=== PATIENT | female | born 1955 | race Caucasian/White ===

== ENCOUNTER 2019-02-17 11:04 | Observation (INO) | payer OTHER ==
[2019-02-17 11:35] LABS: Absolute Lymphocytes (CBC) 0.9 K/uL (0.7-4.9); Absolute Monocytes 0.6 K/uL (0.1-1.3); Absolute Neutrophil 6.8 K/uL (1.8-8.0); Basophils % 0.5 % (0-1.3); Hematocrit 40.9 % (36.0-45.0); Lymphocytes % 10.8 % (15.3-44.8); MPV 8.8 fL (7.6-11.3); RBC Red Blood Cell Count 4.39 M/uL (3.86-4.86)
[2019-02-17 11:53] LABS: Protime INR 0.98
--- NOTE | 2019-02-17 11:55 | RAD REPORT ---
EXAM DESCRIPTION: CT - Head C Spine Mpr Wo Con - 02/17/2019 11:38 am CLINICAL HISTORY: Syncope. Head and neck injury status post fall. Head and neck pain COMPARISON: None. TECHNIQUE: Computed axial tomography of the head and cervical spine was obtained. Sagittal and coronal reconstruction was performed. All CT scans are performed using dose optimization technique as appropriate and may include automated exposure control or mA/KV adjustment according to patient size. FINDINGS: A posterior scalp hematoma without visualization of a skull fracture. An intracranial bleed is not seen. The ventricles are normal in caliber. An extra-axial fluid collect ion is not noted.Fluid within the visualized sinuses and mastoids is not seen A cervical fracture is not visualized. Anterior fusion C6 and C7 by plate, screws and bone plug. Spondylosis involves the cervical spine Mild posterior subluxation of C5 on C6 with disc space narrowing and osteophytes. IMPRESSION: No acute intracranial abnormality is seen. A cervical fracture is not visualized. Mild posterior subluxation of C5 on C6 probably is chronic. However this should be compared to prior exams. If the patient continues to have symptoms to suggest intracranial /spinal cord/ ligamentous pathology then MRI would be recommended
[2019-02-17 12:03] LABS: ALT/SGPT 35 U/L (12-78); AST/SGOT 34 U/L (15-37); Alkaline Phosphatase 111 U/L (45-117); BUN Blood Urea Nitrogen 14 mg/dL (7-18); Bicarbonate 24 mmol/L (21-32); Bilirubin Direct 0.2 mg/dL (0-0.2); Bilirubin Total 0.7 mg/dL (0.2-1.0); Glucose Level 131 mg/dL (74-106); NT PRO-BNP 2003 pg/mL (<125); Potassium 3.7 mmol/L (3.5-5.1); Protein, Total 8.3 g/dL (6.4-8.2); Sodium Level 137 mmol/L (136-145); Troponin (Emerg Dept Use Only) < 0.02 ng/mL (0.0-0.045)
--- NOTE | 2019-02-17 12:07 | RAD REPORT ---
EXAM DESCRIPTION: Twin Single View02/17/2019 11:45 am CLINICAL HISTORY: Chest pain COMPARISON: none FINDINGS: The lungs appear clear of acute infiltrate. The heart is normal size IMPRESSION: No acute abnormalities displayed
--- NOTE | 2019-02-17 12:13 | ER ---
Nurse's Notes [facility] Name: Esther Lira Age: 63 yrs Sex: Female : 1955 Arrival Date: 02/17/2019 Time: 11:05 Bed 5 Private MD: None, None Diagnosis: Syncope and collapse;Unspecified injury of head Presentation: 02/17 11:08 Presenting complaint: Patient states: I started getting sick yesterday, between 0630 la1 and 0700 I passed out and all i remember is waking up on the floor, before passing out I remember feeling nauseous and dizzy, Pt hit head on the a rounded corner and dented the drywall with her head. Pt also pain in right elbow and left wrist. Transition of care: patient was not received from another setting of care. Onset of symptoms was February 17, 2019. Risk Assessment: Do you want to hurt yourself or someone else? Patient reports no desire to harm self or others. Initial Sepsis Screen: Does the patient meet any 2 criteria? No. Patient's initial sepsis screen is negative. Does the patient have a suspected source of infection? No. Patient's initial sepsis screen is negative. Care prior to arrival: None. 11:08 Method Of Arrival: Wheelchair la1 11:08 Acuity: CLAUDETTE 2 la1 Triage Assessment: 11:15 General: Appears in no apparent distress. comfortable, Behavior is calm, cooperative, bp appropriate for age. Historical: - Allergies: 11:12 Codeine; la1 - Home Meds: 11:12 propranolol Oral [Active]; Lisinopril Oral [Active]; pravastatin oral oral [Active]; la1 Zoloft Oral [Active]; - PMHx: 11:12 Hypertension; High Cholesterol; la1 - PSHx: 11:12 Cholecystectomy; neck sx; la1 - Immunization history:: Adult Immunizations up to date. - Social history:: Smoking status: Patient/guardian denies using tobacco. - Ebola Screening: : No symptoms or risks identified at this time. Screenin:27 Abuse screen: Denies threats or abuse. Nutritional screening: No deficits noted. aa5 Tuberculosis screening: No symptoms or risk factors identified. Fall Risk Fall in past 12 months (25 points). IV access (20 points). Total Dick Fall Scale indicates High Risk Score (45 or more points). Fall prevention measures have been instituted. Side Rails Up X 2. Assessment: 11:20 General: Appears comfortable, Behavior is calm, cooperative. Pain: Complains of pain in aa5 occipital area Pain does not radiate. Pain currently is 5 out of 10 on a pain scale. Quality of pain is described as aching, tender, Pain began post-fall Is continuous. Neuro: Level of Consciousness is awake, alert, obeys commands, Oriented to person, place, time, situation, Student Accounts Manager are equal bilaterally Moves all extremities. Speech is normal, Facial symmetry appears normal, Pupils are PERRLA, Reports dizziness. Cardiovascular: Heart tones S1 S2 present Rhythm is regular. Respiratory: Airway is patent Respiratory effort is even, unlabored, Respiratory pattern is regular, symmetrical, Breath sounds are clear bilaterally. GI: Abdomen is round non-distended, Bowel sounds present X 4 quads. Abd is soft and non tender X 4 quads. Patient currently denies nausea, vomiting. : No signs and/or symptoms were reported regarding the genitourinary system. EENT: No signs and/or symptoms were reported regarding the EENT system. Derm: Skin is pink, warm \\T\\ dry. Hematoma noted to occipital area. Musculoskeletal: Range of motion: intact in all extremities. 12:00 Reassessment: Patient is alert, oriented x 3, equal unlabored respirations, skin aa5 warm/dry/pink. Pt notified of need for urine specimen, pt states "I can't go right now because I am dizzy" . 13:00 Reassessment: ADMIT IN PROCESS, VS STABLE ON MONITOR. bp Vital Signs: 11:12 BP 147 / 100; Pulse 82; Resp 14; Temp 98.0; Pulse Ox 98% on R/A; Weight 90.72 kg; la1 11:12 Height 5 ft. 10 in. (177.80 cm); Pain 6/10; la1 11:28 BP 159 / 92; Pulse 64; Resp 16 S; Pulse Ox 98% on R/A; aa5 13:00 BP 146 / 98; Pulse 70; Resp 21; Pulse Ox 95% ; bp ED Course: 11:05 Patient arrived in ED. mr 11:05 None, None is Private Physician. mr 11:11 Triage completed. la1 11:13 Hanna Das FNP-C is PHCP. snw 11:13 Nickolas Briscoe MD is Attending Physician. snw 11:13 Arm band placed on right wrist. la1 11:18 Janet Espinoza, RN is Primary Nurse. aa5 11:20 Patient has correct armband on for positive identification. Placed in gown. Bed in low aa5 position. Call light in reach. Side rails up X2. 11:20 customer service sales associate on. Pulse ox on. NIBP on. aa5 11:27 Inserted saline lock: 22 gauge in right antecubital area, using aseptic technique. bp Blood collected. 11:[address] mw3 11:37 CT completed. Patient tolerated procedure well. mw3 11:38 Patient moved to radiology. mw3 11:38 CT Head C Spine In Process Unspecified. EDMS 11:39 No provider procedures requiring assistance completed. aa5 11:44 X-ray completed. Patient tolerated procedure well. kp1 11:45 XRAY Chest (1 view) In Process Unspecified. EDMS 12:11 Katie Pruitt MD is Hospitalizing Provider. snw 12:45 Urine collected: clean catch specimen, sonam colored. kj1 13:48 Patient admitted, IV remains in place. bp Administered Medications: No medications were administered Outcome: 12:12 Decision to Hospitalize by Provider. snw 13:47 Admitted to Tele accompanied by tech, family with patient, via wheelchair, room 419, bp with chart, Report called to BARRERA APARICIO 13:47 Condition: stable 13:47 Instructed on the need for admit. 14:16 Patient left the ED. bp Signatures: Dispatcher [employer] EDMS Hanna Das FNP-C KILNMAN-Csnw Mohini BustillosJanet, RN RN aa5 Ryan Edmondson RN RN la1 Annika Santos kp1 Pito Hernandez RN RN Delmi Beal mw3 Jennifer Hdz kj1 Corrections: (The following items were deleted from the chart) 11:38 11:[address] mw3 mw3
--- NOTE | 2019-02-17 12:13 | EDPHYS ---
Physician Documentation [facility] Name: Esther Lira Age: 63 yrs Sex: Female : 1955 Arrival Date: 02/17/2019 Time: 11:05 Bed 5 Private MD: None, None ED Physician Nickolas Briscoe HPI: 02/17 11:30 This 63 yrs old Female presents to ER via Wheelchair with complaints of Syncope. snw 11:30 The patient has experienced syncope, collapsed. Onset: The symptoms/episode snw began/occurred suddenly, today, x2. Duration: The patient has had multiple episodes, that last an unknown period of time. Context: the episode(s) was witnessed, by no one, occurred at home, occurred while the patient was walking, Just prior to the episode the patient experienced dizziness, nausea. 11:30 Associated injury: Head/face: left occipital area, contusion, swelling. Associated snw signs and symptoms: Pertinent positives: dizziness, nausea, fatigue. Current symptoms: malaise. The patient has not experienced similar symptoms in the past. The patient has been recently seen by a physician: the patient's primary care provider, with different complaint(s), started on Lisinopril. pt with large amt of emotional/physical stress second to pt's family illnesses. Historical: - Allergies: 11:12 Codeine; la1 - Home Meds: 11:12 propranolol Oral [Active]; Lisinopril Oral [Active]; pravastatin oral oral [Active]; la1 Zoloft Oral [Active]; - PMHx: 11:12 Hypertension; High Cholesterol; la1 - PSHx: 11:12 Cholecystectomy; neck sx; la1 - Immunization history:: Adult Immunizations up to date. - Social history:: Smoking status: Patient/guardian denies using tobacco. - Ebola Screening: : No symptoms or risks identified at this time. ROS: 11:27 Constitutional: Negative for fever, chills, and weight loss, Eyes: Negative for injury, snw pain, redness, and discharge, ENT: Negative for injury, pain, and discharge, Neck: Negative for injury, pain, and swelling, Cardiovascular: Negative for chest pain, palpitations, and edema, Respiratory: Negative for shortness of breath, cough, wheezing, and pleuritic chest pain, Back: Negative for injury and pain, : Negative for injury, bleeding, discharge, and swelling, MS/Extremity: Negative for injury and deformity, Skin: Negative for injury, rash, and discoloration. 11:27 Abdomen/GI: Positive for nausea. 11:27 Neuro: Positive for syncope, x 2 this am, preceded by dizziness and nausea. Exam: 11:26 Constitutional: This is a well developed, well nourished patient who is awake, alert, snw and in no acute distress. Eyes: Pupils equal round and reactive to light, extra-ocular motions intact. Lids and lashes normal. Conjunctiva and sclera are non-icteric and not injected. Cornea within normal limits. Periorbital areas with no swelling, redness, or edema. ENT: Nares patent. No nasal discharge, no septal abnormalities noted. Tympanic membranes are normal and external auditory canals are clear. Oropharynx with no redness, swelling, or masses, exudates, or evidence of obstruction, uvula midline. Mucous membranes moist. Neck: Trachea midline, no thyromegaly or masses palpated, and no cervical lymphadenopathy. Supple, full range of motion without nuchal rigidity, or vertebral point tenderness. No Meningismus. Chest/axilla: Normal chest wall appearance and motion. Nontender with no deformity. No lesions are appreciated. Cardiovascular: Regular rate and rhythm with a normal S1 and S2. No gallops, murmurs, or rubs. Normal PMI, no JVD. No pulse deficits. Respiratory: Lungs have equal breath sounds bilaterally, clear to auscultation and percussion. No rales, rhonchi or wheezes noted. No increased work of breathing, no retractions or nasal flaring. Abdomen/GI: Soft, non-tender, with normal bowel sounds. No distension or tympany. No guarding or rebound. No evidence of tenderness throughout. Back: No spinal tenderness. No costovertebral tenderness. Full range of motion. Skin: Warm, dry with normal turgor. Normal color with no rashes, no lesions, and no evidence of cellulitis. MS/ Extremity: Pulses equal, no cyanosis. Neurovascular intact. Full, normal range of motion. Neuro: Awake and alert, GCS 15, oriented to person, place, time, and situation. Cranial nerves II-XII grossly intact. Motor strength 5/5 in all extremities. Sensory grossly intact. Cerebellar exam normal. Normal gait. 11:26 Head/Face: Normocephalic, atraumatic. 11:26 Head/face: Noted is contusion, that is deep, of the left occipital area. 11:30 ECG was reviewed by the Attending Physician. snw Vital Signs: 11:12 BP 147 / 100; Pulse 82; Resp 14; Temp 98.0; Pulse Ox 98% on R/A; Weight 90.72 kg; la1 11:12 Height 5 ft. 10 in. (177.80 cm); Pain 6/10; la1 11:28 BP 159 / 92; Pulse 64; Resp 16 S; Pulse Ox 98% on R/A; aa5 13:00 BP 146 / 98; Pulse 70; Resp 21; Pulse Ox 95% ; bp MDM: 11:20 Patient medically screened. snw 12:12 ECG was reviewed by the Attending Physician. Data reviewed: vital signs, nurses notes. snw Data interpreted: Pulse oximetry: on room air is 98 %. Interpretation: normal. Counseling: I had a detailed discussion with the patient and/or guardian regarding: the historical points, exam findings, and any diagnostic results supporting the discharge/admit diagnosis, the presence of at least one elevated blood pressure reading (>120/80) during this emergency department visit, lab results, radiology results, the need for further work-up and treatment in the hospital. Physician consultation: Katie Pruitt MD was called at 12:13, was contacted at 12:13, regarding admission, to the telemetry unit. 02/17 11:16 Order name: Basic Metabolic Panel; Complete Time: 12:08 snw 02/17 11:16 Order name: CBC with Diff; Complete Time: 11:51 snw 02/17 11:16 Order name: LFT's; Complete Time: 12:08 snw 02/17 11:16 Order name: Magnesium; Complete Time: 12:08 snw 02/17 11:16 Order name: NT PRO-BNP; Complete Time: 12:08 snw 02/17 11:16 Order name: PT-INR; Complete Time: 12:08 snw 02/17 11:16 Order name: Troponin (emerg Dept Use Only); Complete Time: 12:08 snw 02/17 11:16 Order name: XRAY Chest (1 view); Complete Time: 12:08 snw 02/17 11:16 Order name: EKG; Complete Time: 11:17 snw 02/17 11:16 Order name: CT Head C Spine; Complete Time: 12:08 snw 02/17 11:52 Order name: Urine Microscopic Only; Complete Time: 13:41 snw 02/17 12:31 Order name: Urine Dipstick--Ancillary (enter results) eb 02/17 13:00 Order name: Carotid Artery Bilateral EDMS 02/17 13:00 Order name: ERT ORTHOSTATIC V/S EDMS 02/17 11:16 Order name: Cardiac monitoring; Complete Time: 11:34 snw 02/17 11:16 Order name: EKG - Nurse/Tech; Complete Time: 11:34 snw 02/17 11:16 Order name: IV Saline Lock; Complete Time: 11:34 snw 02/17 11:16 Order name: Labs collected and sent; Complete Time: 11:34 snw 02/17 11:16 Order name: O2 Per Protocol; Complete Time: 11:34 snw 02/17 11:16 Order name: O2 Sat Monitoring; Complete Time: 11:35 snw 02/17 11:52 Order name: Urine Dipstick-Ancillary (obtain specimen); Complete Time: 12:56 snw 02/17 12:18 Order name: Diet Heart Healthy; Complete Time: 12:19 ss EC:30 Rate is 62 beats/min. Rhythm is regular. QRS [place] is Normal. SC interval is prolonged snw at 220 msec. Clinical impression: 1st degree heart block. Administered Medications: No medications were administered Disposition: 02/17/19 12:12 Hospitalization ordered by Katie Pruitt for Observation. Preliminary diagnosis are Syncope and collapse, Unspecified injury of head. - Bed requested for Telemetry/MedSurg (observation). - Status is Observation. bp - Condition is Stable. - Problem is new. - Symptoms are unchanged. UTI on Admission? No Addendum: 02/19/2019 08:02 Co-signature as Attending Physician, Nickolas Briscoe MD Available for consultation at p s1 all times. . Signatures: Dispatcher [employer] EDEkta Acosta, RN RN Hanna Zhang, ELVER-C AUDIO VISUAL EQUIPMENT RENTAL CLERK-Csnw Ryan Edmondson, RN RN la1 Pito Hernandez, RN RN bp Nickolas Briscoe MD MD ps1 Corrections: (The following items were deleted from the chart) 02/17 13:13 12:12 Hospitalization Ordered by Katie Pruitt MD for Observation. Preliminary dw diagnosis is Syncope and collapse; Unspecified injury of head. Bed requested for Telemetry/MedSurg (observation). Status is Observation. Condition is Stable. Problem is new. Symptoms are unchanged. UTI on Admission? No. snw 14:16 13:13 02/17/2019 12:12 Hospitalization Ordered by Katie Pruitt MD for Observation. bp Preliminary diagnosis is Syncope and collapse; Unspecified injury of head. Bed requested for Telemetry/MedSurg (observation). Status is Observation. Condition is Stable. Problem is new. Symptoms are unchanged. UTI on Admission? No. dw
[2019-02-17 13:40] LABS: Urine Amorphous Sediment 2+ /HPF (NONE SEEN); Urine Bacteria 20-50 /HPF (<20); Urine Culture Reflex Order REFLEXED; Urine RBC 20-50 /HPF (NONE SEEN)
--- NOTE | 2019-02-17 14:24 | P.HP ---
Certification for Inpatient Patient admitted to: Observation With expected LOS: <2 Midnights Patient will require the following post-hospital care: None Practitioner: I am a practitioner with admitting privileges, knowledge of patient current condition, hospital course, and medical plan of care. Services: Services provided to patient in accordance with Admission requirements found in Title 42 Section 412.3 of the Code of Federal Regulations Patient History Date of Service: 02/17/19 Reason for admission: Syncopal episode History of Present Illness: 63-year-old female with significant past medical history of hypertension, hyperlipidemia who presented to the ED complaining of having a syncopal episode at the house. Pt states her has been sick with URI. She since yesterday also started having cough and congestion and this Morning while she was trying to get out of bed to go to the bathroom, she was coughing and passed out. Patient stated that she has never had this episode before and was recently started on lisinopril for her blood pressure. Patient has no other complaints to offer at this time. Denies having any fever chills nausea vomiting chest pain or shortness of breath at this time as well. Allergies codeine Allergy (Verified 02/17/19 14:32) Itching Home medications list reviewed: Yes - Past Medical/Surgical History Has patient received pneumonia vaccine in the past: Yes Diabetic: No -: Hypertension -: Hyperlipidemia Past Surgical History: Reviewed- Non-Contributory - Family History Family History: Reviewed- Non-Contributory - Social History Smoking Status: Never smoker Counseled patient to stop smoking for: less than 10 minutes Smoking therapy provided: Yes Patient receptive to therapy: Yes Alcohol use: No CD- Drugs: No Caffeine use: No Place of Residence: Home Review of Systems 10-point ROS is otherwise unremarkable Physical Examination - Physical Exam General: Alert, In no apparent distress HEENT: Atraumatic, PERRLA, Mucous membr. moist/pink, EOMI, Sclerae nonicteric Neck: Supple, 2+ carotid pulse no bruit, No LAD, Without JVD or thyroid abnormality Respiratory: Clear to auscultation bilaterally, Normal air movement Cardiovascular: Regular rate/rhythm, Normal S1 S2 Gastrointestinal: Normal bowel sounds, No tenderness Musculoskeletal: No tenderness Integumentary: No rashes Neurological: Normal gait, Normal speech, Normal strength at 5/5 x4 extr, Normal tone, Normal affect Lymphatics: No axilla or inguinal lymphadenopathy - Studies Laboratory Data (last 24 hrs) 02/17/19 11:25: PT 11.6, INR 0.98 02/17/19 11:25: WBC 8.3, Hgb 14.0, Hct 40.9, Plt Count 245 02/17/19 11:25: Sodium 137, Potassium 3.7, BUN 14, Creatinine 0.91, Glucose 131 H, Magnesium 2.0, Total Bilirubin 0.7, AST 34, ALT 35, Alkaline Phosphatase 111 Assessment and Plan - Problems (Diagnosis) (1) Syncopal episodes Current Visit: Yes Status: Acute Plan: Syncopal episode most likely secondary to vasovagal -head CT in the ER negative for any acute abnormality -will get MRI, carotid Doppler, echocardiogram done at this time -EKG in the ER consistent with first-degree block. Will get cardiology consultation at this time -will have patient was physical therapy and occupational therapy -will get orthostatics vitals as well Qualifiers: Syncope type: vasovagal syncope Qualified Code(s): R55 - Syncope and collapse (2) Hypertension Current Visit: Yes Status: Chronic Plan: Will restart home medication with caution after checking blood pressure here in the hospital Qualifiers: Hypertension type: essential hypertension Qualified Code(s): I10 - Essential (primary) hypertension (3) Hyperlipidemia Current Visit: Yes Status: Chronic Plan: Will restart home medication Qualifiers: Hyperlipidemia type: mixed hyperlipidemia Qualified Code(s): E78.2 - Mixed hyperlipidemia - Plan Admit patient to telemetry floor for syncopal episode and further workup for it. Discharge Plan: Home Plan to discharge in: Greater than 2 days - Advance Directives Does patient have a Living Will: No Does patient have a Durable POA for Healthcare: No - Code Status/Comfort Care Code Status Assessed: Yes Critical Care: No
[2019-02-17 14:50] LABS: Urine Blood 3+ (NEG); Urine Glucose NEGATIVE (NEG); Urine Protein 1+ (NEG); Urine Specific Gravity 1.015 (1.005-1.030); Urine pH 5.5 (5.0-7.0)
[2019-02-17] MEDS: ACETAMINOPHEN 500 MG TAB PO PRN (17:28)
--- NOTE | 2019-02-17 17:57 | RAD REPORT ---
EXAM DESCRIPTION: USCarotid Artery Bilateral02/17/2019 5:46 pm CLINICAL HISTORY: Syncope COMPARISON: None FINDINGS: The velocity of the right internal carotid artery equals 52 cm/sec. The right ICA/CCA rati o .8 The velocity of the left internal carotid artery equals 68 cm/sec. The left ICA/CCA ratio 1 Mild plaque is present within the carotid arteries. The vertebral arteries demonstrate antegrade flow IMPRESSION: Mild plaque within the carotid arteries without evidence of a hemodynamically significan t stenosis NASCET criteria used. Mild 0-49% stenosis Moderate 50-69% stenosis Severe 70-99% stenosis
[2019-02-17] MEDS: ATORVASTATIN 10 MG TAB PO SCH (20:39)
[2019-02-17] MEDS: PROPRANOLOL HCL 80 MG SA CAP PO SCH (20:39)
[2019-02-17] MEDS: SERTRALINE HCL 50 MG TAB PO SCH (20:40)
[2019-02-18 05:58] LABS: Absolute Lymphocytes (CBC) 1.2 K/uL (0.7-4.9); Absolute Monocytes 0.7 K/uL (0.1-1.3); Absolute Neutrophil 3.8 K/uL (1.8-8.0); Basophils % 0.3 % (0-1.3); Hematocrit 38.4 % (36.0-45.0); Lymphocytes % 21.4 % (15.3-44.8); MPV 9.1 fL (7.6-11.3); Monocytes % 11.6 % (3.3-12.3); RBC Red Blood Cell Count 3.94 M/uL (3.86-4.86)
[2019-02-18 06:22] LABS: Albumin 3.9 g/dL (3.4-5.0); Bilirubin Total 0.6 mg/dL (0.2-1.0); Magnesium 2.1 mg/dL (1.8-2.4); Phosphorus 2.4 mg/dL (2.5-4.9); Potassium 3.7 mmol/L (3.5-5.1)
[2019-02-18] MEDS: ACETAMINOPHEN 500 MG TAB PO PRN ×3 (07:10→20:39)
[2019-02-18] MEDS: PROPRANOLOL HCL 80 MG SA CAP PO SCH ×2 (08:10→20:41)
[2019-02-18] MEDS: ASPIRIN EC 81 MG TAB PO SCH (08:10)
[2019-02-18] MEDS ORDERED: POTASS/SODIUM PHOSPHATE 1 PKT POWD.PACK PO ONE (09:00)
[2019-02-18] MEDS ORDERED: POTASSIUM 25 MEQ EFFERV TAB PO ONE (09:00)
[2019-02-18] MEDS ORDERED: SERTRALINE HCL 50 MG TAB PO SCH (09:00)
[2019-02-18] MEDS ORDERED: ACETAMINOPHEN 325 MG TABLET PO PRN (10:51)
--- NOTE | 2019-02-18 11:12 | P.PN ---
Subjective Date of Service: 02/18/19 Chief Complaint: Syncopal episode Subjective: Tolerating diet, Ambulating, Improving, Working w/ PT, Doing well, Other (Complains of having headache and nasal congestion at this time.) Review of Systems 10-point ROS is otherwise unremarkable Physical Examination - Vital Signs Temperature: 99.3 F Blood Pressure: 160/101 Pulse: 84 Respirations: 16 Pulse Ox (%): 98 - Physical Exam General: Alert, In no apparent distress HEENT: Atraumatic, PERRLA, EOMI Neck: Supple, JVD not distended Respiratory: Clear to auscultation bilaterally, Normal air movement Cardiovascular: Regular rate/rhythm, Normal S1 S2 Gastrointestinal: Normal bowel sounds, No tenderness Musculoskeletal: No tenderness Integumentary: No rashes Neurological: Normal speech, Normal tone, Normal affect Lymphatics: No axilla or inguinal lymphadenopathy - Studies Laboratory Data (last 24 hrs) 02/17/19 11:25: PT 11.6, INR 0.98 02/17/19 11:25: WBC 8.3, Hgb 14.0, Hct 40.9, Plt Count 245 02/17/19 11:25: Sodium 137, Potassium 3.7, BUN 14, Creatinine 0.91, Glucose 131 H, Magnesium 2.0, Total Bilirubin 0.7, AST 34, ALT 35, Alkaline Phosphatase 111 Medications List Reviewed: Yes Assessment And Plan - Current Problems (Diagnosis) (1) Syncopal episodes Current Visit: Yes Status: Acute Plan: Syncopal episode most likely secondary to vasovagal -head CT in the ER negative for any acute abnormality -brain MRI in an echocardiogram pending at this time -EKG in the ER consistent with first-degree block. -cardiology consulted appreciated recommendations at this time -patient to work with physical therapy and occupational therapy today -stable orthostatic vital Qualifiers: Syncope type: vasovagal syncope Qualified Code(s): R55 - Syncope and collapse (2) Hypertension Current Visit: Yes Status: Chronic Plan: Currently taking propanolol. Restarted lisinopril today. If needed will increase lisinopril to adjust for blood pressure Qualifiers: Hypertension type: essential hypertension Qualified Code(s): I10 - Essential (primary) hypertension (3) Hyperlipidemia Current Visit: Yes Status: Chronic Plan: On home medication now Qualifiers: Hyperlipidemia type: mixed hyperlipidemia Qualified Code(s): E78.2 - Mixed hyperlipidemia - Plan Pending clinical improvement at this time. Will await brain MRI and echocardiogram tomorrow morning. If both of which were negative patient can safely be discharged home and have follow up with cardiology outpatient. Patient will also worked with physical and occupational therapy here in the hospital. Discharge Plan: Home Plan to discharge in: 48 Hours - Code Status/Comfort Care Code Status Assessed: Yes Critical Care: No
[2019-02-18] MEDS ORDERED: TEMAZEPAM 15 MG CAP PO PRN (20:29)
[2019-02-18] MEDS: SERTRALINE HCL 50 MG TAB PO SCH (20:40)
[2019-02-18] MEDS: FLUTICASONE 50MCG NASAL SPRAY NAS SCH (20:41)
[2019-02-18] MEDS: ATORVASTATIN 10 MG TAB PO SCH (20:41)
--- NOTE | 2019-02-19 00:21 | CON ---
Date of Consultation: 02/18/[address] Pruitt's service on 02/17/2019 with syncope. I saw the patient on 02/18/2019. History Of Present Illness: Ms. Lira is a 63-year-old woman who has a history of hypertension, dyslipidemia, who came in with a syncopal episode while she was standing. It was not witnessed. The re were no postictal or preictal symptoms. No incontinence. Denied any chest pain, nausea, vomiting , diaphoresis, PND, orthopnea, pedal edema, or palpitation prior to her episode. She feels that her symptoms are secondary to blood pressure being elevated. Allergies: SHE IS ALLERGIC TO CODEINE. Review of Systems: Negative. Social History: Negative. Family History: Negative. Medications: At home include aspirin, lisinopril, Pravachol, propranolol, and sertraline. Physical Examination: Vital Signs: Her blood pressure is 160/100. HEENT: Negative. Neck: Supple without any bruit, lymphadenopathy, JVD, or thyromegaly. Chest: Clear to auscultation and percussion. Cardiac: Revealed a regular rhythm and rate with an S4 gallop. Abdomen: Benign. Extremities: Revealed no clubbing, cyanosis, or edema. Diagnostic Data: Chest x-ray was negative. She had a CT of her head and cervical spine which were n egative. Her carotid Doppler was negative. Her BNP was 2003. Impression And Plan: 1.Syncope secondary to uncontrolled hypertension, certainly could be a vagal reaction because of her blood pressure being elevated. 2.Dyslipidemia. I think Ms. Lira can certainly go home on a higher dose of lisinopril. Continue the propranolol . I think an echocardiogram and outpatient event monitors are reasonable. TYRA/ISABELLAL Voice ID: [id number] Report ID: [id number]
--- NOTE | 2019-02-19 05:57 | EKG ---
Test Date: 2019-02-17 Test Time: 11:28:00 [employer] Specialist: MEETA MEASUREMENT RESULTS: Intervals: Rate: 62 MI: 220 QRSD: 76 QT: 436 QTc: 442 [place]: P: 46 MI: 220 QRS: -14 T: 49 INTERPRETIVE STATEMENTS: Sinus rhythm with 1st degree AV block Otherwise normal ECG No previous ECG available for comparison Electronically Signed On 02-19-19 05:56:16 CDT by Jonas Garcia
[2019-02-19 06:25] LABS: Absolute Lymphocytes (CBC) 1.9 K/uL (0.7-4.9); Absolute Neutrophil 4.9 K/uL (1.8-8.0); Basophils % 0.4 % (0-1.3); Hematocrit 41.9 % (36.0-45.0); Lymphocytes % 23.8 % (15.3-44.8); MPV 9.1 fL (7.6-11.3); Monocytes % 12.5 % (3.3-12.3); RBC Red Blood Cell Count 4.37 M/uL (3.86-4.86)
[2019-02-19 06:47] LABS: Albumin 4.1 g/dL (3.4-5.0); Bilirubin Total 0.7 mg/dL (0.2-1.0); Magnesium 2.2 mg/dL (1.8-2.4); Phosphorus 2.7 mg/dL (2.5-4.9); Potassium 3.6 mmol/L (3.5-5.1); Protein, Total 8.7 g/dL (6.4-8.2)
[2019-02-19] MEDS: ACETAMINOPHEN 500 MG TAB PO PRN (07:14)
--- NOTE | 2019-02-19 08:41 | RAD REPORT ---
EXAM DESCRIPTION: MRI - Brain Wo Cont - 02/19/2019 8:12 am CLINICAL HISTORY: syncope Headache, drowsiness, CVA COMPARISON: Head C Spine Mpr Wo Con dated 02/17/2019; Carotid Artery Bilateral dated 02/17/2019 TECHNIQUE: Multi-sequence, multiplanar MR imaging of the brain was performed without contrast. FINDINGS: No intracranial hemorrhage, hydrocephalus or extra-axial fluid collections. No edema or sh ift of midline structures. No findings to suspect brain mass. DWI is negative for acute CVA. Midline structures are normally formed. Mild mucosal thickening is present in both maxillary antra and sphenoid sinuses. Mild fluid is seen i n the right mastoid air cell. IMPRESSION: No acute or concerning intracranial abnormalities.
[2019-02-19] MEDS: FLUTICASONE 50MCG NASAL SPRAY NAS SCH (08:46)
[2019-02-19] MEDS: ASPIRIN EC 81 MG TAB PO SCH (08:46)
[2019-02-19] MEDS: PROPRANOLOL HCL 80 MG SA CAP PO SCH (08:49)
[2019-02-19] MEDS ORDERED: LISINOPRIL 20 MG TAB PO SCH ×2 (09:00)
[2019-02-19] MEDS ORDERED: POTASSIUM CL SA 10 MEQ TAB PO ONE (09:00)
--- NOTE | 2019-02-19 13:43 | P.DS ---
Admission Date: 02/17/19 Discharge Date: 02/19/19 Primary Care Provider: Dr. Cordova([facility]) Disposition: ROUTINE DISCHARGE Discharge Condition: GOOD Reason for Admission: Syncopal episode Consultations: Cardiology-Dr. Conley Procedures: MRI Brain: COMPARISON: Head C Spine Mpr Wo Con dated 02/17/2019; Carotid Artery Bilateral dated 02/17/2019 TECHNIQUE: Multi-sequence, multiplanar MR imaging of the brain was performed without contrast. FINDINGS: No intracranial hemorrhage, hydrocephalus or extra-axial fluid collections. No edema or shift of midline structures. No findings to suspect brain mass. DWI is negative for acute CVA. Midline structures are normally formed. Mild mucosal thickening is present in both maxillary antra and sphenoid sinuses. Mild fluid is seen in the right mastoid air cell. IMPRESSION: No acute or concerning intracranial abnormalities. Carotid Doppler: FINDINGS: The velocity of the right internal carotid artery equals 52 cm/sec. The right ICA/CCA ratio .8 The velocity of the left internal carotid artery equals 68 cm/sec. The left ICA/ CCA ratio 1 Mild plaque is present within the carotid arteries. The vertebral arteries demonstrate antegrade flow IMPRESSION: Mild plaque within the carotid arteries without evidence of a hemodynamically significant stenosis CT head/neck: FINDINGS: A posterior scalp hematoma without visualization of a skull fracture. An intracranial bleed is not seen. The ventricles are normal in caliber. An extra-axial fluid collection is not noted.Fluid within the visualized sinuses and mastoids is not seen A cervical fracture is not visualized. Anterior fusion C6 and C7 by plate, screws and bone plug. Spondylosis involves the cervical spine Mild posterior subluxation of C5 on C6 with disc space narrowing and osteophytes. IMPRESSION: No acute intracranial abnormality is seen. A cervical fracture is not visualized. Mild posterior subluxation of C5 on C6 probably is chronic. However this should be compared to prior exams. 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 Patient was admitted for further evaluation and treatment. Hospital Course: Patient presented with syncopal episode likely related to uncontrolled hypertension and orthostatic hypotension. Medications were adjusted. Patient seen and evaluated by Cardiology. No further cardiac intervention required. MRI brain negative. No significant stenosis noted on carotid Doppler. CT scan revealed posterior scalp hematoma. Mild subluxation to the C5 on C6 region likely chronic. Lisinopril was increased. At discharge patient will continue with lisinopril 20 mg 1 pill twice daily and propanolol 80 mg 1 pill twice daily. Continue with aspirin 81 mg daily. Maintain blood pressures less 150/ 80. Further adjustment can be done by her PCP or cardiology. Recommend to follow up with cardiology in 1-2 weeks to follow up this hospitalization. Fall precautions provided. Patient with hyperlipidemia. Patient will continue with pravastatin 40 mg 1 pill daily. Patient with depression. Patient will continue with Zoloft 25 mg daily. Vital Signs/Physical Exam: Temp Pulse Resp BP Pulse Ox 98.0 F 78 18 147/95 H 97 02/19/19 08:00 02/19/19 08:49 02/19/19 08:00 02/19/19 08:49 02/19/19 08:00 General: Alert, In no apparent distress, Oriented x3, Cooperative HEENT: Atraumatic Neck: Supple Respiratory: Clear to auscultation bilaterally, Normal air movement Cardiovascular: Normal pulses, Regular rate/rhythm Gastrointestinal: Normal bowel sounds, Soft and benign, Non-distended, No tenderness, No masses, No rebound, No guarding Musculoskeletal: No erythema, No tenderness, No warmth Integumentary: No tenderness/swelling, No erythema, No warmth, No cyanosis Neurological: Normal speech, Normal strength at 5/5 x4 extr, Normal tone, Normal affect Laboratory Data at Discharge: WBC 7.8 K/uL (4.3-10.9) D 02/19/19 06:04 Hgb 14.9 g/dL (12.0-15.0) 02/19/19 06:04 Hct 41.9 % (36.0-45.0) 02/19/19 06:04 Plt Count 245 K/uL (152-406) 02/19/19 06:04 PT 11.6 SECONDS (9.5-12.5) 02/17/19 11:25 INR 0.98 02/17/19 11:25 Sodium 134 mmol/L (136-145) L 02/19/19 06:04 Potassium 3.6 mmol/L (3.5-5.1) 02/19/19 06:04 BUN 19 mg/dL (7-18) H 02/19/19 06:04 Creatinine 0.80 mg/dL (0.55-1.3) 02/19/19 06:04 Glucose 106 mg/dL (74-106) 02/19/19 06:04 Phosphorus 2.7 mg/dL (2.5-4.9) 02/19/19 06:04 Magnesium 2.2 mg/dL (1.8-2.4) 02/19/19 06:04 Total Bilirubin 0.7 mg/dL (0.2-1.0) 02/19/19 06:04 AST 42 U/L (15-37) H 02/19/19 06:04 ALT 36 U/L (12-78) 02/19/19 06:04 Alkaline Phosphatase 114 U/L (45-117) 02/19/19 06:04 Home Medications: Aspirin [Aspir-Low] 81 mg PO DAILY 02/17/19 Pravastatin Sodium 40 mg PO DAILY 02/17/19 Propranolol [Inderal LA*] 80 mg PO BID 02/17/19 Sertraline HCl 25 mg PO DAILY 02/17/19 Lisinopril [Prinivil*] 20 mg PO BID #60 tab 02/19/19 New Medications: Lisinopril [Prinivil*] 20 mg PO BID #60 tab Patient Discharge Instructions: 1. Patient will follow up with a PCP in 1 week to follow up this hospitalization. 2. Patient presented with syncopal episode likely related to uncontrolled hypertension and orthostatic hypotension. Medications have been adjusted. Patient seen and evaluated by Cardiology. No further cardiac intervention required. MRI brain negative. At discharge patient will continue with lisinopril 20 mg 1 pill twice daily and propanolol 80 mg 1 pill twice daily. Continue with aspirin 81 mg daily. Maintain blood pressures less 150/80. Further adjustment can be done by her PCP or cardiology. Recommend to follow up with cardiology in 1-2 weeks to follow up this hospitalization. 3. Patient with hyperlipidemia. Patient will continue with pravastatin 40 mg 1 pill daily. 4. Patient with depression. Patient will continue with Zoloft 25 mg daily. Diet: AHA Activity: Fall precautions Time spent managing pt's care (in minutes): 55
--- NOTE | 2019-02-19 13:52 | ECHO ---
HEIGHT: 5 ft 10 in WEIGHT: 214 lb 0 oz DATE OF STUDY: 02/19/[address]: Katie Pruitt MD 2-DIMENSIONAL: YES M.MODE: YES DOPPLER: YES COLOR FLOW: YES TDS: PORTABLE: DEFINITY: BUBBLE STUDY: DIAGNOSIS: SYNCOPAL WORKUP CARDIAC HISTORY: CATHERIZATION: NO SURGERY: NO PROSTHETIC VALVE: NO PACEMAKER: NO MEASUREMENTS (cm) DIASTOLIC (NORMALS) SYSTOLIC (NORMALS) IVSd 1.0 (0.6-1.2) LA Diam 2.9 (1.9-4.0) LVEF 70% LVIDd 4.0 (3.5-5.7) LVIDs 2.4 (2.0-3.5) %FS 39% LVPWd 1.0 (0.6-1.2) Ao Diam 3.1 (2.0-3.7) 2 DIMENSIONAL ASSESSMENT: RIGHT ATRIUM: NORMAL LEFT ATRIUM: NORMAL RIGHT VENTRICLE: NORMAL LEFT VENTRICLE: NORMAL TRICUSPID VALVE: NORMAL MITRAL VALVE: NORMAL PULMONIC VALVE: NORMAL AORTIC VALVE: NORMAL PERICARDIAL EFFUSION: NONE AORTIC ROOT: NORMAL LEFT VENTRICULAR WALL MOTION: NORMAL DOPPLER/COLOR FLOW: NORMAL COMMENTS: NORMAL TWO DIMENSIONAL ECHOCARDIOGRAM WITH DOPPLER. TECHNOLOGIST: ANYA RODGERS
== END 2019-02-19 12:14 | disposition home or self-care (01) ==
LOC: ER 11:04 → ERHOLD 12:56 → 4TH 13:49
PROVIDERS: ADMIT Family Medicine; ATTEND Family Medicine
DX: R55 Syncope and collapse (principal); I10 Essential (primary) hypertension; E78.2 Mixed hyperlipidemia; I95.1 Orthostatic hypotension; S00.03XA Contusion of scalp, initial encounter; W18.30XA Fall on same level, unspecified, initial encounter; Y93.9 Activity, unspecified; Y92.013 Bedroom of single-family (private) house as the place of occurrence of the external cause; S13.160A Subluxation of C5/C6 cervical vertebrae, initial encounter; F41.8 Other specified anxiety disorders; Z88.6 Allergy status to analgesic agent
CPT/HCPCS: 36415; 70450; 70551; 71045; 72125; 80048; 80053; 80076; 81003; 81015; 83735; 83880; 84100; 84484; 85025; 85610; 87086; 87088; 93005; 93306; 93880; 94760; 97161; 97165; 99285; G0378

== ENCOUNTER 2020-03-08 12:18 | Emergency (ER) | payer MEDICARE, OTHER ==
--- OUTSIDE RECORDS SUMMARY | 2020-03-08 12:21 | XMS REPORT | Summary of Care ---
:1955 Author Organization [facility] Address [address] [place] [address] Care Team Providers Name Role Phone MD Gianfranco Primary Care Provider Reason for Visit Reason Comments LAB Encounter Details Date Type Department Care Team Description 07/16/2019 Blueberry Grower Visit [facility] Shane Fink MD [address] [place] [address] Hair loss CLINICS LAB Pcp-Lab Primary Care [address] [place] [address] Allergies Active Allergy Reactions Severity Noted Date Comments Codeine Nausea and/or Vomiting 04/13/2016 Penicillins Nausea and/or Vomiting 07/16/2016 documented as of this encounter (statuses as of 07/16/2019) Medications Medication Sig Dispensed Refills Start Date End Date Status BIOTIN ORAL Take by mouth. 0 Ac tive aspirin 81 mg chewable Take 1 Tab by 60 Tab 2 10/21/2015 Active tabletIndications: mouth daily. Essential hypertension VITAMIN B COMPLEX Take 1 capsule 0 Active NO.12-NIACIN ORAL by mouth daily. lisinopril 20 mg Take 1 tablet by 90 tablet 3 02/09/2019 Active tabletIndications: mouth daily. Essential hypertension SERTraline 50 mg Take 1 tablet by 90 tablet 3 02/23/2019 Active tabletIndications: mouth daily. Anxiety, Current moderate episode of major depressive disorder, unspecified whether recurrent pravastatin 40 mg Take 1 tablet by 90 tablet 1 04/25/2019 Active tabletIndications: mouth daily. On Mixed hyperlipidemia empty stomach. propranolol 80 mg Take 1 tablet by 180 tablet 3 07/11/2019 Active tabletIndications: mouth 2 (two) Essential hypertension, times daily. 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 Overview: Left axis deviation on EKG -- 2015 Mixed hyperlipidemia 09/27/2015 Overview: 10-year ASCVD risk 6.7% on pravastatin 4 0mg -- 06/2018 Obesity (BMI 30.0-34.9) 09/27/2015 Essential hypertension 04/10/2014 Depression with anxiety 11/07/2009 documented as of this encounter (statuses as of 07/16/2019) Resolved Problems Problem Noted Date Resolved Date Abdominal pain 05/21/2018 02/09/2019 Acute cholecystitis 05/20/2018 07/16/2019 Right upper quadrant abdominal pain 05/20/2018 02/0 02/2019 Bandemia 05/20/2018 07/16/2019 Chest pain, atypical 07/16/2016 10/11/2016 documented as of this encounter (statuses as of 07/16/2019) Immunizations Name Administration Dates Next Due Influenza Virus Vaccine Quad .5 mL IM 6+ MO 09/13/2018 Influenza Virus Vaccine Quad IM 3+ YRS 09/26/2015 Tdap 12/11/2018 Zoster(Zostavax)(Shingles) 09/26/2015 documented as of this encounter Social History Tobacco Use Types Packs/Day Years Used Date Never Smoker Smokeless Tobacco: Never Used Alcohol Use Drinks/Week oz/Week Comments Yes 0 Standard drinks or equivalent 0.0 Sex Assigned at Date Recorded Not on file Job Start Date Occupation Industry Not on file Not on file Not on file Travel History Travel Start Travel End No recent travel history available. documented as of this encounter Last Filed Vital Signs Not on filedocumented in this encounter Plan of Treatment Date Type Specialty Care Team Description 08/16/2019 Office Visit Urology Teo Perkins MD [address] [place] [address] [phone] Health Maintenance Due Date Last Done Comments MAMMOGRAM 1994 Zoster Recombinant Vaccine 11/21/2015 09/26/2015 (SHINGRIX) (2 of 3) INFLUENZA VACCINE (#1) 2019 09/13/2018, 09/26/2015 COLONOSCOPY 12/10/2019 Postponed from 0 2004 (Patient Refused ) PAP SMEAR 12/10/2019 Postponed from 0 1975 (Patient Refused ) DTaP,Tdap,and Td Vaccines (2 12/11/2028 12/11/2018 - Td) HEPATITIS C (HCV) SCREEN Completed 09/13/2018 (Previously completed) PNEUMOCOCCAL 0-64 YEARS Aged Out No longe r eligible based COMBINED SERIES on patient's age to complete this to [facility] documented as of this encounter Results Not on filedocumented in this encounter Visit Diagnoses Diagnosis Hair loss Alopecia, unspecified documented in this encounter Insurance Payer Benefit Plan / Subscriber ID Effective Dates Phone Addre ss Type Group MEDICARE MEDICARE PART xxxxxxxxxxx 2019-Mo [phone] Medicare A & B t 2 [id number] [place] [id number] documented as of this encounter
--- OUTSIDE RECORDS SUMMARY | 2020-03-08 12:21 | XMS REPORT | Summary of Care ---
:1955 Author Organization [facility] Address [address] [place] [address] Care Team Providers Name Role Phone MD Gianfranco Primary Care Provider Reason for Visit Reason Comments Refill Request Encounter Details Date Type Department Care Team Description 07/10/2019 Refill [facility] Family Medicine, Shane Cui MD Refill Request [facility] on [address] [facility] Primary Care [address] [address] [address] [place], [place] [phone] Allergies Active Allergy Reactions Severity Noted Date Comments Codeine Nausea and/or Vomiting 04/13/2016 Penicillins Nausea and/or Vomiting 07/16/2016 documented as of this encounter (statuses as of 07/11/2019) Medications Medication Sig Dispensed Refills Start Date End Date Status BIOTIN ORAL Take by mouth. 0 Ac tive aspirin 81 mg Take 1 Tab by 60 Tab 2 10/21/2015 A ctive chewable mouth daily. tabletIndications: Essential hypertension VITAMIN B COMPLEX Take 1 capsule 0 Active NO.12-NIACIN ORAL by mouth daily. BUSPIRONE 15 mg TAKE ONE TABLET 60 tablet 1 12/08/2018 Active tabletIndications: BY MOUTH TWICE Generalized anxiety A DAY, MAY TAKE disorder AN ADDITIONAL TABLET IF NO RESPONSE AFTER FIRST WEEK lisinopril 20 mg Take 1 tablet 90 tablet 3 02/09/2019 Active tabletIndications: by mouth daily. Essential hypertension SERTraline 50 mg Take 1 tablet 90 tablet 3 02/23/2019 Active tabletIndications: by mouth daily. Anxiety, Current moderate episode of major depressive disorder, unspecified whether recurrent pravastatin 40 mg Take 1 tablet 90 tablet 1 04/25/2019 Active tabletIndications: by mouth daily. Mixed On empty hyperlipidemia stomach. propranolol 80 mg Take 1 tablet 180 tablet 3 07/11/2019 Active tabletIndications: by mouth 2 Essential (two) times hypertension, daily. 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 Overview: Left axis deviation on EKG -- 2015 Mixed hyperlipidemia 09/27/2015 Overview: 10-year ASCVD risk 6.7% on pravastatin 4 0mg -- 06/2018 Obesity (BMI 30.0-34.9) 09/27/2015 Essential hypertension 04/10/2014 Depression with anxiety 11/07/2009 documented as of this encounter (statuses as of 07/11/2019) Resolved Problems Problem Noted Date Resolved Date Abdominal pain 05/21/2018 02/09/2019 Right upper quadrant abdominal pain 05/20/2018 02/0 02/2019 Chest pain, atypical 07/16/2016 10/11/2016 documented as of this encounter (statuses as of 07/11/2019) Immunizations Name Administration Dates Next Due Influenza [...] Treatment Date Type Specialty Care Team Description 07/16/2019 Office Visit Family Medicine Shane Medel MD [address] [facility] [address] [place], [place] [address] [phone] Health Maintenance Due Date Last Done Comments [...] on patient's age to complete this to [facility] documented as of this encounter Results Not on filedocumented in this encounter Visit Diagnoses Diagnosis Essential hypertension Unspecified essential hypertension Generalized anxiety disorder documented in this encounter Insurance Payer Benefit Plan / Group Subscriber ID Effective Dates Phone Address Type [employer] [id number] 2017-Present PPO documented as of this encounter
--- OUTSIDE RECORDS SUMMARY | 2020-03-08 12:21 | XMS REPORT ---
:[address] [facility] t Address [facility] Santos [address] [place] [address] Care Team Providers Name Role Phone Unavailable Unavailable Unavailable Problems This patient has no known problems. Allergies, Adverse Reactions, Alerts This patient has no known allergies or adverse reactions. Medications This patient has no known medications.
--- OUTSIDE RECORDS SUMMARY | 2020-03-08 12:21 | XMS REPORT | Summary of Care ---
:1955 Author Organization [facility] Address [address] [place] [address] Care Team Providers Name Role Phone MD Gianfranco Primary Care Provider Encounter Details Date Type Department Care Team Description 07/16/2019 Orders Only [facility] Doctor Unassigned, No [address] [facility] [place] [address] [address] [place] [address] Allergies Active Allergy Reactions Severity Noted Date [...] hypertension VITAMIN B COMPLEX Take 1 capsule by 0 Active NO.12-NIACIN ORAL mouth daily. BUSPIRONE 15 mg TAKE ONE TABLET 60 tablet 1 12/08/2018 Active tabletIndications: BY MOUTH TWICE A Generalized anxiety DAY, MAY TAKE AN disorder ADDITIONAL TABLET IF NO RESPONSE AFTER FIRST WEEK lisinopril 20 mg Take 1 tablet by [...] 07/11/2019 Active tabletIndications: mouth 2 (two) Essential times daily. hypertension, Generalized anxiety disorder documented as of this encounter (statuses as of 07/16/2019) Active Problems Problem Noted Date Generalized anxiety disorder 09/12/2018 Chronic cholecystitis due to gallbladder calculus with obstruction 06/06/2018 Overview: Added automatically from request for kayleigh blackwood [id number] Acute cholecystitis 05/20/2018 Bandemia 05/20/2018 Gall stones [...] Visit Family Medicine Shane Medel MD [address] [place], [place] [address] [phone] Health Maintenance Due Date Last Done Comments [...] on patient's age [facility] documented as of this encounter Procedures Procedure Name Priority Date/Time Associated Diagnosis Comme [facility] PATIENT FINANCIAL Routine 07/16/2019 8:26 AM CDT POLICY documented in this encounter Results Not on filedocumented in this encounter Insurance Payer Benefit Plan / Subscriber ID Effective Dates Phone Addre ss Type Group MEDICARE MEDICARE PART xxxxxxxxxxx 2019-Mo [phone] [address] Medicare A & B t 2 [id number] [place] [id number] documented as of this encounter
--- OUTSIDE RECORDS SUMMARY | 2020-03-08 12:21 | XMS REPORT | Summary of Care ---
:[address] [facility] - [facility] Address [address] [place] [address] Care Team Providers Name Role Phone MD Gianfranco Primary Care Provider Reason for Referral (Routine) Status Reason Specialty Diagnoses / Referred By Referred To Procedures Contact Contact New Request Dermatology Diagnoses History of squamous cell carcinoma of skin Shane Medel, Procedures CONSULT/REFERRAL DERMATOLOGY MD [address] [place] [address] (Routine) Status Reason Specialty Diagnoses / Procedures Referred By Asha kate To Contact Contact New Request Urology Diagnoses Other urinary incontinence Shane Medel, Procedures CONSULT/REFERRAL UROLOGY MD [address] [place] [address] Reason for Visit Reason Comments Incontinence URINARY FU Hair/Scalp Problem LOSS Refill Request Encounter Details Date Type Department Care Team Description 07/16/2019 Office Visit [facility] Family Shane Medel, Hair loss (Primary Dx); Theodore Tello MD Essential hypertension; [facility] [address] Other urinary incontinence; [facility] [address] [address] Anxiety; [address], [place], [place] Curre nt mild episode of major depressive disorder, unspecified whether recurrent; [address] [address] History of squamous cell carcinoma of sk in; [place], [place] [phone] Depression with anxiety [id number] [phone] Allergies Active Allergy Reactions Severity Noted Date [...] daily. lisinopril 20 mg Take 1 tablet 90 [...] (two) times hypertension, daily. Generalized anxiety disorder BUSPIRONE 15 mg TAKE ONE TABLET 60 tablet 1 12/08/2018 01 Discontinued tabletIndications: BY MOUTH TWICE 9 Generalized anxiety A DAY, MAY TAKE disorder AN ADDITIONAL TABLET IF NO RESPONSE AFTER FIRST WEEK documented as of this encounter (statuses as of 07/16/2019) Active Problems Problem Noted Date Generalized anxiety disorder 09/12/2018 Chronic cholecystitis due to gallbladder calculus with obstruction 06/06/2018 Overview: Added automatically from request for kayleigh blackwood [id number] Gall stones 05/19/2018 Left anterior fascicular hemiblock [...] of this encounter Last Filed Vital Signs Vital Sign Reading Time Taken Comments Blood Pressure 148/84 07/16/2019 8:58 AM CDT Pulse 53 07/16/2019 8:58 AM CDT Temperature 36.3 C (97.4 F) 07/16/2019 8:58 AM CDT Respiratory Rate 18 07/16/2019 8:58 AM CDT Oxygen Saturation - - Inhaled Oxygen Concentration - - Weight 95.8 kg (211 lb 3.2 oz) 07/16/2019 8:58 AM CDT Height 177.8 cm (5' 10") 07/16/2019 8:58 AM CDT Body Mass Index 30.3 07/16/2019 8:58 AM CDT documented in this encounter Progress Notes Shane Medel MD - 07/16/2019 8:40 AM CDTS: 63 y/o female with multiple medical problems is here to discuss her hair loss and urinary incontinence. The patient states that she has been having diarrhea for the past 5-6 weeks. She also states that she is also losing her hair. The patient states she initially started losing her hair about three months ago. The patient had the flu several months ago which may have triggered losing hair. The patient states that she is losing hair all over her head. The patient denies specific areas of hair loss. She states that her hair is thinning. The patient states that she has an episode one night where she was urinating every two minutes. The patient is unsure why she had that episode. She saw urology once for evaluation, but cancelled futureappointments until she obtained Medicare. The patient just got Medicare on 07/08/19, so she is able tomake another appointment now. PMH: HTN, Anxiety/Depression, urinary incontinence Social: patient denies tobacco use, denies recreational drug use. CONSTITUTIONAL: no weight loss/gain, no fatigue, no fevers EYES: no vision changes CV: no chest pain RESPIRATORY: no shortness of breath GI: no abdominal pain : + urinary changes MSK: no joint pain SKIN: + rashes NEURO: no headaches PSYCH: + depression/anxiety ENDOCRINE: no heat/cold intolerance HEMATOLOGIC: no abnormal bleeding O: BP (!) 148/84 | Pulse 53 | Temp 36.3 C (97.4 F) (Oral) | Resp 18 | Ht 5' 10" (1.778 m) |Wt 211 lb 3.2 oz (95.8 kg) | BMI 30.30 kg/m GEN: NAD, healthy appearing SKIN: no visible rashes EYES: EOMI intact ENT: normal appearing oropharynx NECK: no LAD, no thyromegaly CV: RRR, no m/r/g LUNGS: CTA B, no wheezes/crackles, no accessory muscle exam EXTREMITIES: no edema, 2+ pulses b/l PSYCH: appropriate affect, judgement/insight intact, non-pressured speech NEURO: AAAO X 4 PHQ-9: 4 MARISSA-7: 2 A/P: 1) Obesity - Nutritional/Exercise Counseling and Education: - Counseled on diet, exercise, weight control and goals 2) HTN - overall well controlled - continue lisinopril 10 mg po bid - I reviewed the patient's lab results over the last 12 months 3) Anxiety/Depression - overall much better controlled - continue sertraline daily 4) Urinary incontinence - poorly controlled - worsening - placed another referral to urology for a follow-up visit 5) History of squamous cell cancer of the skin - referral to dermatology placed for annual skin check 6) Hair loss - worsening - patient with history of low TSH in the recent past - will re-check the level today Plan discussed with patient. Patient understands medications and dosing, discussed side effects, andmedications reconciled. Barriers for compliance assessed and addressed. Counseled patient on treatment plan. Patient voices understanding of the plan and is available on mychart. The patient was provided the after visit summary (AVS) documenting the visit, pertinent patient instructions and follow-up recommendations. Patient instructed to follow-up if the condition does not improve. Shane Medel MD, MPH, FAAFP Dairy Farmworker, Department of Family Medicine Canoe Inspector Final, [facility] documented in this encounter Plan of Treatment Date Type Specialty Care Team Description 07/16/2019 Weed Sprayer Visit Phlebotomy Az Medel MD [address] [facility] [address] [place] [address] Arrived Pcp-Lab 08/16/2019 Office Visit Urology Teo Perkins MD [address] [place], [place] [address] [phone] Name Type Priority Associated Diagnoses Order S chedule THYROID STIMULATING HORMONE LAB Routine Hair loss Ordered: 07/16/2019 Health Maintenance Due Date Last Done Comments [...] on patient's age to complete this to [facility] documented as of this encounter Results Not on filedocumented in this encounter Visit Diagnoses Diagnosis Hair loss - Primary Alopecia, unspecified Essential hypertension Unspecified essential hypertension Other urinary incontinence Anxiety Anxiety state, unspecified Current mild episode of major depressive disorder, unspecified whether recurrent History of squamous cell carcinoma of sk in Personal history of other malignant neop lasm of skin Depression with anxiety Dysthymic disorder documented in this encounter Insurance Payer Benefit Plan / Subscriber ID Effective Dates Phone Addre ss Type Group MEDICARE MEDICARE PART xxxxxxxxxxx 2019-Mo [phone] [address] Medicare A & B t 2 [id number] NEIL MOREIRA [phone] documented as of this encounter
--- OUTSIDE RECORDS SUMMARY | 2020-03-08 12:21 | XMS REPORT | Summary of Care ---
:1955 Author Organization [facility] - [facility] Address [address] [place] [address] Care Team Providers Name Role Phone MD Gianfranco Primary Care Provider Reason for Referral (Routine) Status Reason Specialty Diagnoses / Referred By Referred To Procedures Contact Contact New Request Dermatology Diagnoses History of squamous cell carcinoma of skin Shane Medel, Procedures CONSULT/REFERRAL DERMATOLOGY MD [address] [place] [address] (Routine) Status Reason Specialty Diagnoses / Procedures Referred By Asha kate To Contact Contact New Request Urology Diagnoses Other urinary incontinence Shane Medel, Procedures CONSULT/REFERRAL UROLOGY MD [address] [place] [address] Reason for Visit Reason Comments Incontinence URINARY FU Hair/Scalp Problem LOSS Refill Request Encounter Details Date Type Department Care Team Description 07/16/2019 Office Visit [facility] Family Shane Medel, Hair loss (Primary Dx); Theodore Tello MD Essential hypertension; [facility] [address] Other urinary incontinence; [facility] [address] Anxiety; [address], [place], [place] Curre nt mild episode of major depressive disorder, unspecified whether recurrent; [address] [address] History of squamous cell carcinoma of sk in; [place], [place] [phone] Depression with anxiety [address] [phone] Allergies Active Allergy Reactions Severity Noted Date [...] Added automatically from request for kayleigh blackwood [id number] Gall stones 05/19/2018 Left anterior fascicular hemiblock [...] not improve. Shane Medel MD, MPH, FAAFP Plastic Jig And Fixture Builder, Department of Family Medicine Welding Equipment Repairer, [facility] documented in this encounter Plan of Treatment Date Type Specialty Care Team Description 07/16/2019 Supervisor Asbestos Removal Visit Phlebotomy Az Medel MD [address] [facility] [address] [place] [address] Arrived Pcp-Lab 08/16/2019 Office Visit Urology Teo Perkins MD [address] [place], [place] [address] [phone] Name Type Priority Associated [...] on patient's age to complete this to [facility] documented as of this encounter Results Not [...] BOX Medicare A & B t 2 [id number] NEIL MOREIRA [phone] documented as of this encounter
--- OUTSIDE RECORDS SUMMARY | 2020-03-08 12:22 | XMS REPORT | Summary of Care ---
:1955 Author Organization [facility] Address [address] [place] [address] Care Team Providers Name Role Phone MD Gianfranco Primary Care Provider Reason for Referral (Routine) Status Reason Specialty Diagnoses / Referred By Referred To Procedures Contact Contact Closed Endocrinology Diagnoses Low TSH level Hair loss Mikie Aleman, Diabetes & Procedures CONSULT/REFERRAL ENDOCRINOLOGY Other (see comments); Preferred Location: [facility] [address] [place] [address] [address] Reason for Visit Reason Comments LAB results Encounter Details Date Type Department Care Team Description 07/25/2019 Office Visit [facility] Family Kya Aleman MD Low TSH level (Primary Dx); [facility], [place] [address] [facility] Hair loss [place] [address] Primary Care [place], [place] [address] [address] [phone] [place] [address] Drive, [address] [place] [phone] Allergies Active Allergy Reactions Severity Noted Date Comments Codeine Nausea and/or Vomiting 04/13/2016 Penicillins Nausea and/or Vomiting 07/16/2016 documented as of this encounter (statuses as of 07/25/2019) Medications Medication Sig Dispensed Refills Start Date [...] as of this encounter (statuses as of 07/25/2019) Active Problems Problem Noted Date Low TSH level 07/18/2019 Thinning hair 07/18/2019 Generalized anxiety disorder 09/12/2018 Chronic cholecystitis due to gallbladder calculus with obstruction 06/06/2018 Overview: Added automatically from request for kayleigh blackwood [id number] Gall stones 05/19/2018 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 Overview: Left axis deviation on EKG -- 2015 Mixed hyperlipidemia 09/27/2015 Overview: 10-year ASCVD risk 6.7% on pravastatin 4 0mg -- 06/2018 Obesity (BMI 30.0-34.9) 09/27/2015 Essential hypertension 04/10/2014 Depression with anxiety 11/07/2009 documented as of this encounter (statuses as of 07/25/2019) Resolved Problems Problem Noted Date Resolved Date Abdominal pain 05/21/2018 02/09/2019 Acute cholecystitis 05/20/2018 07/16/2019 Right upper quadrant abdominal pain 05/20/2018 02/0 02/2019 Bandemia 05/20/2018 07/16/2019 Chest pain, atypical 07/16/2016 10/11/2016 documented as of this encounter (statuses as of 07/25/2019) Immunizations Name Administration Dates Next Due Influenza [...] Sign Reading Time Taken Comments Blood Pressure 131/86 07/25/2019 8:13 AM CDT Pulse 64 07/25/2019 8:13 AM CDT Temperature 36.8 C (98.3 F) 07/25/2019 8:13 AM CDT Respiratory Rate 17 07/25/2019 8:13 AM CDT Oxygen Saturation - - Inhaled Oxygen Concentration - - Weight 94.8 kg (208 lb 14.4 oz) 07/25/2019 8:13 AM CDT Height 177.8 cm (5' 10") 07/25/2019 8:13 AM CDT Body Mass Index 29.97 07/25/2019 8:13 AM CDT documented in this encounter Patient Instructions Patient InstructionsMikie Aleman MD - 07/25/2019 8:30 AM CDTYour TSH (thyroid stimulating hormone) level was very low. This means your brain is sensing too muchthyroid hormone in your body, and trying not to stimulate your thyroid gland to make as much thyroidhormone. Hyperthyroidism can cause a wide variety of signs and symptoms, including: Sudden weight loss, even when your appetite and the amount and type of food you eat remain the same or even increase Rapid heartbeat (tachycardia) commonly more than 100 beats a minute irregular heartbeat (arrhythmia) or pounding of your heart (palpitations) Increased appetite Nervousness, anxiety and irritability Tremor usually a fine trembling in your hands and fingers Sweating Changes in menstrual patterns Increased sensitivity to heat Changes in bowel patterns, especially more frequent bowel movements An enlarged thyroid gland (goiter), which may appear as a swelling at the base of your neck Fatigue, muscle weakness Difficulty sleeping Skin thinning Fine, brittle hair T3 / T4: I have placed another lab order to add on further testing of your thyroid function. I will contact you with these results soon. I have placed a referral to an clergy member (gland specialist) at [facility] for further evaluation andtreatment. Please stop by our laboratory in [address] at the [facility] so that we can collect the blood specimen to complete this testing. I recommend scheduling another appointment with me 1-2 weeksafter this testing to discuss the results. If the antibody testing does not confirm the diagnosis, we can do additional evaluation with an ultrasound of your thyroid, and/or with a procedure called radioactive iodine uptake (which allows us to see the activity level of different parts of the thyroid gland). documented in this encounter Progress Notes Mikie Aleman MD - 07/25/2019 8:30 AM CDT Cc: Chief Complaint Patient presents with LAB results Esther Lira is a 63 year old female. Here for f/u lab results low TSH .04 and concerns for continued hair loss. Patient otherwise in a good state of health but does endorse generally being hot, and having increased sweating in the past.No thyroid issues in the past. No palpitations or tachycardia but patient is on propanol. No sudden weight changes. Allergies Esther is allergic to codeine and pcn [penicillins]. Medications Outpatient Medications Prior to Visit Medication Sig Dispense Refill propranolol 80 mg tablet Take 1 tablet by mouth 2 (two) times daily. 180 tablet 3 pravastatin 40 mg tablet Take 1 tablet by mouth daily. On empty stomach. 90 tablet 1 SERTraline 50 mg tablet Take 1 tablet by mouth daily. 90 tablet 3 lisinopril 20 mg tablet Take 1 tablet by mouth daily. 90 tablet 3 VITAMIN B COMPLEX NO.12-NIACIN ORAL Take 1 capsule by mouth daily. aspirin 81 mg chewable tablet Take 1 Tab by mouth daily. 60 Tab 2 BIOTIN ORAL Take by mouth. No facility-administered medications prior to visit. Histories Past Medical History: Diagnosis Date Anxiety Arthritis Hypertension Past Surgical History: Procedure Laterality Date LAPAROSCOPIC CHOLECYSTECTOMY N/A 06/27/2018 Surgeon: Elizabeth Mcclure MD; Location: [facility] SPINE SURGERY 1999 herniated disc in neck Social History Socioeconomic History Marital status: Spouse name: Not on file Number of children: Not on file Years of education: Not on file Highest education level: Not on file Occupational History Occupation: retired Social Needs Financial resource strain: Not on file Food insecurity: Worry: Not on file Inability: Not on file Transportation needs: Medical: Not on file Non-medical: Not on file Tobacco Use Smoking status: Never Smoker Smokeless tobacco: Never Used Substance and Sexual Activity Alcohol use: Yes Alcohol/week: 0.0 oz Drug use: Yes Types: Marijuana Sexual activity: Yes Partners: Male Lifestyle Physical activity: Days per week: Not on file Minutes per session: Not on file Stress: Not on file Relationships Social connections: Talks on phone: Not on file Gets together: Not on file Attends oriental orthodox service: Not on file Active member of club or organization: Not on file Attends meetings of clubs or organizations: Not on file Relationship status: Not on file Intimate partner violence: Fear of current or ex partner: Not on file Emotionally abused: Not on file Physically abused: Not on file Forced sexual activity: Not on file Other Topics Concern Service Not Asked Blood Transfusions Not Asked Caffeine Concern No Comment: Drinks one caffeinated beverage per day Occupational Exposure No Hobby Hazards No Sleep Concern No Stress Concern Yes Weight Concern Not Asked Special Diet Not Asked Back Care Not Asked Exercise No Comment: Walks regularly, yoga/pilates Bike Helmet Not Asked Seat Belt Not Asked Self-Exams Not Asked Social History Narrative Retired Family History Problem Relation Age of Onset Cancer Mother Cancer Father Cancer Sister Cancer Brother Arthritis Mother Diabetes Mother Review of Systems Constitutional: Negative for chills, fever, weight gain and weight loss. Respiratory: Negative for chest tightness and shortness of breath. Cardiovascular: Negative for palpitations and leg swelling. Skin: Negative for color change, pallor, rash and wound. Hematological: Positive for heat intolerance. Negative for cold intolerance. Endocrine: Positive for heat intolerance. Negative for goiter, cold intolerance, weight gain and weight loss. Vital Signs BP 131/86 | Pulse 64 | Temp 36.8 C (98.3 F) (Oral) | Resp 17 | Ht 5' 10" (1.778 m) | Wt 208lb 14.4 oz (94.8 kg) | BMI 29.97 kg/m Physical Exam Constitutional: She is oriented to person, place, and time. She appears well- developed and well-nourished. HENT: Head: Normocephalic and atraumatic. Eyes: EOM are normal. Neck: Normal range of motion. Neck supple. Cardiovascular: Normal rate. Pulmonary/Chest: Effort normal. Musculoskeletal: Normal range of motion. Neurological: She is alert and oriented to person, place, and time. Skin: Skin is warm and dry. Assessment/Plan 1. Low TSH level May consider likely hyperthyroid state based on lab results vs a central hypothyroidism, to check free t3/4 prior to initiating medical therapy and may also have patient f/u with endocrinology if necessary. - FREE T4 - FREE T3 - CONSULT/REFERRAL ENDOCRINOLOGY Other (see comments); Preferred Location: [place] 2. Hair loss Elucidating thyroid etiology may help alleviate current sx - FREE T4 - FREE T3 - CONSULT/REFERRAL ENDOCRINOLOGY Other (see comments); Preferred Location: [place] documented in this encounter Plan of Treatment Date Type Specialty Care Team Description 08/16/2019 Office Visit Urology Teo Perkins MD [address] [place] [address] [phone] Name Type Priority Associated Diagnoses Date/Ti me FREE T4 LAB Routine Low TSH level 07/25/2019 9:14 AM CDT Hair loss FREE T3 LAB Routine Low TSH level 07/25/2019 9:14 AM CDT Hair loss Health Maintenance Due Date Last Done Comments [...] on patient's age to complete this to [facility] documented as of this encounter Results Not on filedocumented in this encounter Visit Diagnoses Diagnosis Low TSH level - Primary Nonspecific abnormal results of thyroid function study Hair loss Alopecia, unspecified documented in this encounter Insurance Payer Benefit Plan / Subscriber ID Effective Dates Phone Addre ss Type Group MEDICARE MEDICARE PART xxxxxxxxxxx 2019-Mo [phone] [address] Medicare A & B t 2 [id number] NEIL MOREIR[place] [phone] documented as of this encounter
--- OUTSIDE RECORDS SUMMARY | 2020-03-08 12:22 | XMS REPORT | Summary of Care ---
:1955 Author Organization [facility] Address [address] [place] [address] Care Team Providers Name Role Phone MD Giafnranco Primary Care Provider Reason for Visit Reason Comments LAB Encounter Details Date Type Department Care Team Description 07/25/2019 Medical Superintendent Visit [facility] Mikie Kruger MD [address] [place] [address] Low TSH level CLINICS LAB Pcp-Lab [facility] [address] [place] [address] Allergies Active Allergy Reactions Severity Noted Date [...] Added automatically from request for kayleigh blackwood [id number] Gall stones 05/19/2018 Left anterior fascicular hemiblock [...] Office Visit Urology Teo Perkins MD [address] [place] [address] [phone] Health Maintenance Due Date Last Done [...] on patient's age to complete this to [facility] documented as of this encounter Results Not on filedocumented in this encounter Visit Diagnoses Diagnosis Low TSH level Nonspecific abnormal results of thyroid function study documented in this encounter Insurance Payer Benefit Plan / Subscriber ID Effective Dates Phone Addre ss Type Group MEDICARE MEDICARE PART xxxxxxxxxxx 2019-Mo [phone] [address] Medicare A & B t 2 [id number] NEIL MOREIR[place] [phone] documented as of this encounter
--- OUTSIDE RECORDS SUMMARY | 2020-03-08 12:23 | XMS REPORT | Summary of Care ---
:1955 Author Organization [facility] - [facility] Address [address] [place] [address] Care Team Providers Name Role Phone MD Gianfranco Primary Care Provider Reason for Visit Reason Comments Follow-up s/p bladder stone procedure (Routine) Status Reason Specialty Diagnoses / Procedures Referred By Asha kate To Contact Contact Authorized Urology Diagnoses Other urinary incontinence Shane Medel, Procedures CONSULT/REFERRAL UROLOGY [address] [place] [address] [address] [place] [address] Encounter Details Date Type Department Care Team Description 11/29/2019 Office Visit [facility] Urology- Teo Perkins Uredanielle erocele (Primary Dx); Jhony Carbone MD Bladder stone [facility] [address] [place] [address] 5th Floor [address] [place], [place] [phone] [address] Allergies Active Allergy Reactions Severity Noted Date Comments Codeine Nausea and/or Vomiting 04/13/2016 Penicillins Nausea and/or Vomiting 07/16/2016 documented as of this encounter (statuses as of 12/02/2019) Medications Medication Sig Dispensed Refills Start Date End Date Status BIOTIN ORAL Take by mouth. 0 Ac tive aspirin 81 mg chewable Take 1 Tab by 60 Tab 2 10/21/2015 Active tabletIndications: mouth daily. Essential hypertension VITAMIN B COMPLEX Take 1 capsule 0 Active NO.12-NIACIN ORAL by mouth daily. SERTraline 50 mg Take 1 tablet by 90 tablet 3 02/23/2019 Active tabletIndications: mouth daily. Anxiety, Current moderate episode of major depressive disorder, unspecified whether recurrent propranolol 80 mg Take 1 tablet by 180 tablet 3 07/11/2019 Active tabletIndications: mouth 2 (two) Essential hypertension, times daily. Generalized anxiety disorder lisinopril 20 mg Take 1 tablet by 90 tablet 2 10/01/2019 Active tabletIndications: mouth daily. Essential hypertension PRAVASTATIN 40 mg TAKE ONE TABLET 90 tablet 0 10/19/2019 Active tabletIndications: BY MOUTH DAILY Mixed hyperlipidemia ON AN EMPTY STOMACH gabapentin 300 mg Take 1 capsule 21 capsule 0 10/19/2019 Active capsuleIndications: by mouth 3 Bladder stone (three) times daily. ketorolac 10 mg Take 1 tablet by 20 tablet 0 10/19/2019 Active tabletIndications: mouth every 6 Bladder stone (six) hours as needed for Pain (scale 7-10). ergocalciferol, vitamin Take by mouth. 0 Active D2, (VITAMIN D ORAL) cyanocobalamin, vitamin Take by mouth. 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 Overview: Left axis deviation on EKG -- 2015 Mixed hyperlipidemia 09/27/2015 Overview: 10-year ASCVD risk 6.7% on pravastatin 4 0mg -- 06/2018 Obesity (BMI 30.0-34.9) 09/27/2015 Essential hypertension 04/10/2014 Depression with anxiety 11/07/2009 documented as of this encounter (statuses as of 12/02/2019) Resolved Problems Problem Noted Date Resolved Date Abdominal pain 05/21/2018 02/09/2019 Acute cholecystitis 05/20/2018 07/16/2019 Right upper quadrant abdominal pain 05/20/2018 02/0 02/2019 Bandemia 05/20/2018 07/16/2019 Chest pain, atypical 07/16/2016 10/11/2016 documented as of this encounter (statuses as of 12/02/2019) Immunizations Name Administration Dates Next Due Influenza High Dose 09/11/2019 Influenza Virus Vaccine Quad .5 mL IM [...] Sign Reading Time Taken Comments Blood Pressure 118/81 11/29/2019 10:07 AM ANALYSIS OR RESEARCH SAFETY INSPECTOR Pulse 57 11/29/2019 10:07 AM ANALYSIS OR RESEARCH SAFETY INSPECTOR Temperature 36.7 C (98 F) 11/29/2019 10:07 AM ANALYSIS OR RESEARCH SAFETY INSPECTOR Respiratory Rate 16 11/29/2019 10:07 AM ANALYSIS OR RESEARCH SAFETY INSPECTOR Oxygen Saturation - - Inhaled Oxygen Concentration - - Weight 96 kg (211 lb 11.2 oz) 11/29/2019 10:07 AM ANALYSIS OR RESEARCH SAFETY INSPECTOR Height 177.8 cm (5' 10") 11/29/2019 10:07 AM ANALYSIS OR RESEARCH SAFETY INSPECTOR Body Mass Index 30.38 11/29/2019 10:07 AM ANALYSIS OR RESEARCH SAFETY INSPECTOR documented in this encounter Progress Notes Teo Perkins MD - 11/29/2019 10:15 AM CST Urology Clinic Note / History and Physical Referred by: Self Chief Complaint: Overactive bladder History of Present Illness 12/07/2018: Esther Lira is a 63 year old female with PMH of HTN, presenting with urinary symptoms of urgency, frequency and nocturia for the past 2-3 years, progressively worsening over past few months. She states she frequently feels as if the urge to urinate comes on suddenly and she has to run to the bathroom. Occasionally has leakage; uses pads during long drives. Denies incontinence. Also notes incomplete emptying and having to urinate again shortly after voiding. Denies UTIs, dysuria, hematuria, kidney stones. She was prescribed ditropan by PCP with no improvement. States she has been constipated since undergoing lap hanh in June. Takes nightly stool softener. One vaginal . No hx of pelvic surgeries. Drinks caffeine frequently throughout the day. 08/16/19: Pt presents for f/u. Still with similar sx's from before. Tried conservative measures.Now has CT to review that shows suspicion for bladder stone, possible duplex system. Pt denies having any knowledge of this findings from previous visits (CT done for cholecystectomy workup). Has intermittent hematuria. 10/10/19: Repeat CT confirms stable bladder stone. Still with possibile association with ureterocele, however no discrete duplicated system or hydro seen. 11/29/19: PT s/p procedure. Found to actually have a R ureterocele with stone. Underwent unroofingand cystolithotripsy. All previous sx's now resolved. R UO wide open at end of procedure.. Deniesflank pain. Histories Past Medical History: Diagnosis Date Anxiety Arthritis Hypertension Past Surgical History: Procedure Laterality Date CYSTOLITHOTRIPSY N/A 10/19/2019 Surgeon: Teo Perkins MD; [facility] LAPAROSCOPIC CHOLECYSTECTOMY N/A 06/27/2018 Surgeon: Elizabeth Mcclure MD; [facility] SPINE SURGERY 2000 herniated disc in neck URETEROCELE UNROOFING Right 10/19/2019 Surgeon: Teo Perkins MD; [facility] Family History Problem Relation Age of Onset Cancer Mother Cancer Father Cancer Sister Cancer Brother Arthritis Mother Diabetes Mother Social History Socioeconomic History Marital status: Spouse [...] Sexual Activity Alcohol use: Yes Alcohol/week: 0.0 standard drinks Drug use: Yes Types: Marijuana Sexual activity: Yes Partners: Male Lifestyle Physical activity: Days per week: Not on file Minutes per session: Not on file Stress: Not on file Relationships Social connections: Talks on phone: Not on file Gets together: Not on file Attends protestant service: Not on file Active member of [...] Self-Exams Not Asked Social History Narrative Retired Allergies Allergies Allergen Reactions Codeine Nausea and/or Vomiting Pcn [Penicillins] Nausea and/or Vomiting Review of Systems Constitutional: negative Eyes: negative Ears, nose, mouth, throat: negative Cardiovascular: negative Respiratory: negative Gastrointestinal: negative Genitourinary: (+) per HPI Musculoskeletal: negative Integumentary: negative Neurological: negative Psychiatric: negative Endocrine: negative Hematologic/Lymphatic: negative Allergic/Immunologic: negative, allergies listed above Physical Examination Blood pressure 118/81, pulse 57, temperature 36.7 C (98 F), temperature source Oral, resp. rate 16, height 5' 10" (1.778 m), weight 211 lb 11.2 oz (96 kg). Constitutional: healthy, no acute distress Eyes: normal external eye, conjunctiva and sclera normal Ears, nose, mouth, throat: normocephalic, moist mucous membranes Cardiovascular: regular rate and rhythm Respiratory: respirations unlabored on room air Gastrointestinal: soft, non-distended, no pain Genitourinary: No suprapubic or CVA tenderness Musculoskeletal: no clubbing, cyanosis or edema Skin: no rashes Neurologic: alert and oriented x3 Psychiatric: appropriate mood and affect Hematologic: no bruising Laboratory No new labs Radiology CT reviewed, see HPI Procedure Note PVR: 0 cc Assessment Esther Lira is a 64 year old female s/p unroofing of R ureterocele with stone ablation. Pt to f/u prn worsening sx's. YSIS OR RESEARCH SAFETY INSPECTOR documented in this encounter Plan of Treatment Health Maintenance Due Date Last Done Comments Breast Cancer Screening 1994 (MAMMOGRAM) Zoster Recombinant Vaccine 11/21/2015 09/26/2015 (SHINGRIX) (2 of 3) Medicare Wellness Visit 2019 Osteoporosis Screening 2019 PNEUMOCOCCAL VACCINES 65+ (1 2019 of 2 - PCV13) COLONOSCOPY 12/10/2019 Postponed from 0 2004 (Refused) DTaP,Tdap,and Td Vaccines (2 12/11/2028 12/11/2018 - Td) HEPATITIS C (HCV) SCREEN Completed 09/13/2018 (Previously completed) INFLUENZA VACCINE Completed 09/11/2019, 09/13/2018, 09/26/2015 documented as of this encounter Results Not on filedocumented in this encounter Visit Diagnoses Diagnosis Ureterocele - Primary Other specified disorder of kidney and u reter Bladder stone Other calculus in bladder documented in this encounter Insurance Payer Benefit Plan / Subscriber ID Effective Phone Address T e Group Dates [employer]ARP MEDICARE [id number] 2019-Valeria esparza Adv HEALTHCARE - COMPLETE nt [place] MANAGED MEDICARE documented as of this encounter
--- OUTSIDE RECORDS SUMMARY | 2020-03-08 12:23 | XMS REPORT | Summary of Care ---
:[address] [facility] Address [address] [place] [address] Care Team Providers Name Role Phone MD Gianfranco Primary Care Provider Reason for Visit Reason Comments Refill Request Encounter Details Date Type Department Care Team Description 12/16/2019 Refill [facility] Family Medicine, Shane Cui MD Refill Request [facility] on [address] [facility] Primary Care [address] [address] [place], [place] [address] [phone] Allergies Active Allergy Reactions Severity Noted Date Comments Codeine Nausea and/or Vomiting 04/13/2016 Penicillins Nausea and/or Vomiting 07/16/2016 documented as of this encounter (statuses as of 12/17/2019) Medications Medication Sig Dispensed Refills Start Date [...] mouth. 0 Active B-12, (VITAMIN B12 ORAL) SERTRALINE 25 mg TAKE ONE TABLET 90 tablet 2 12/17/2019 Active tabletIndications: BY MOUTH DAILY Current mild episode of major depressive disorder, unspecified whether recurrent, Anxiety documented as of this encounter (statuses as of 12/17/2019) Active Problems Problem Noted Date Bladder stone 10/16/2019 Overview: Added automatically from request for kayleigh merced [id number] Low TSH level 07/18/2019 Thinning hair 07/18/2019 Generalized anxiety disorder 09/12/2018 Chronic cholecystitis due to gallbladder calculus with obstruction 06/06/2018 Overview: Added automatically from request for kayleigh merced [id number] Gall stones 05/19/2018 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 Overview: Left axis deviation on EKG -- 2015 Mixed hyperlipidemia 09/27/2015 Overview: 10-year ASCVD risk 6.7% on pravastatin 4 0mg -- 06/2018 Obesity (BMI 30.0-34.9) 09/27/2015 Essential hypertension 04/10/2014 Depression with anxiety 11/07/2009 documented as of this encounter (statuses as of 12/17/2019) Resolved Problems Problem Noted Date Resolved Date Abdominal pain 05/21/2018 02/09/2019 Acute cholecystitis 05/20/2018 07/16/2019 Right upper quadrant abdominal pain 05/20/201802/2019 Bandemia 05/20/2018 07/16/2019 Chest pain, atypical 07/16/2016 10/11/2016 documented as of this encounter (statuses as of 12/17/2019) Immunizations Name Administration Dates Next Due Influenza [...] filedocumented in this encounter Plan of Treatment Health Maintenance Due Date Last Done Comments Breast Cancer Screening (MAMMOGRAM) 1994 COLONOSCOPY 2004 Zoster Recombinant Vaccine (SHINGRIX) 11/21/2015 09/26/2015 (2 of 3) Medicare Wellness Visit 2019 Osteoporosis Screening 2019 PNEUMOCOCCAL VACCINES 65+ (1 of 2 - 2019 PCV13) DTaP,Tdap,and Td Vaccines (2 - Td) 12/11/2028 12/11/2018 HEPATITIS C (HCV) SCREEN Completed 09/13/2018 (Previously completed) INFLUENZA VACCINE Completed 09/11/2019, 09/13/2018, 09/26/2015 documented as of this encounter Results Not on filedocumented in this encounter Visit Diagnoses Diagnosis Current mild episode of major depressive disorder, unspecified whether recurrent Anxiety Anxiety state, unspecified documented in this encounter Insurance Payer Benefit Plan / Subscriber ID Effective Phone Address T [facility] Group Dates [employer]ARP MEDICARE [id number] 2019-Valeria esparza Adv HEALTHCARE - COMPLETE [place] [facility] documented as of this encounter
--- OUTSIDE RECORDS SUMMARY | 2020-03-08 12:23 | XMS REPORT | Summary of Care ---
:1955 Author Organization [facility] Address [address] [place] [address] Care Team Providers Name Role Phone MD Gianfranco Primary Care Provider Reason for Referral (Routine) Status Reason Specialty Diagnoses / Referred By Referred To Procedures Contact Contact Closed Endocrinology Diagnoses Low TSH level Hair loss Mikie Aleman, Diabetes & Procedures CONSULT/REFERRAL ENDOCRINOLOGY Other (see comments); Preferred Location: [facility] [address] [address] Reason for Visit Reason Comments LAB results Encounter Details Date Type Department Care Team Description 07/25/2019 Office Visit [facility] Family Kya Aleman MD Low TSH level (Primary Dx); [facility] [place] [facility] Hair loss [place] [address] Primary Care [place], [place] [address] [place] [phone] [place] [address] Drive, [address] [place] [address] Allergies Active Allergy Reactions Severity [...] Added automatically from request for kayleigh blackwood [id number] Gall stones 05/19/2018 Left anterior fascicular hemiblock [...] I have placed a referral to an station air traffic control specialist (gland specialist) at [facility] for further evaluation andtreatment. Please stop by [...] N/A 06/27/2018 Surgeon: Elizabeth Mcclure MD; Location: [facility] SPINE SURGERY 1999 herniated disc in [...] file Gets together: Not on file Attends jainism service: Not on file Active member of [...] CONSULT/REFERRAL ENDOCRINOLOGY Other (see comments); Preferred Location: [place] 2. Hair loss Elucidating thyroid etiology may help alleviate current sx - FREE T4 - FREE T3 - CONSULT/REFERRAL ENDOCRINOLOGY Other (see comments); Preferred Location: [place] documented in this encounter Plan of Treatment Date Type Specialty Care Team Description 08/16/2019 Office Visit Urology Teo Perkins MD [address] [place] [address] [phone] Name Type Priority Associated Diagnoses Date/Ti [...] on patient's age to complete [facility] to [facility] documented as of this encounter Results Not [...] BOX Medicare A & B t 2 [id number] [place] [phone] documented as of this encounter
--- OUTSIDE RECORDS SUMMARY | 2020-03-08 12:23 | XMS REPORT | Summary of Care ---
:1955 Author Organization [facility] Address [address] [place] [address] Care Team Providers Name Role Phone MD Gianfranco Primary Care Provider Encounter Details Date Type Department Care Team Description 07/18/2019 [facility] Anai Medel MD [place] [address] [address] [facility] [address] Primary Care [place] [phone] [address] [place] [address], [phone] [address] [place] [address] Allergies Active Allergy Reactions Severity Noted Date Comments Codeine Nausea and/or Vomiting 04/13/2016 Penicillins Nausea and/or Vomiting 07/16/2016 documented as of this encounter (statuses as of 07/26/2019) Medications Medication Sig Dispensed Refills Start Date [...] as of this encounter (statuses as of 07/26/2019) Active Problems Problem Noted Date Low TSH level 07/18/2019 Thinning hair 07/18/2019 Generalized anxiety disorder 09/12/2018 Chronic cholecystitis due to gallbladder calculus with obstruction 06/06/2018 Overview: Added automatically from request for kayleigh blackwood [id number] Gall stones 05/19/2018 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 Overview: Left axis deviation on EKG -- 2015 Mixed hyperlipidemia 09/27/2015 Overview: 10-year ASCVD risk 6.7% on pravastatin 4 0mg -- 06/2018 Obesity (BMI 30.0-34.9) 09/27/2015 Essential hypertension 04/10/2014 Depression with anxiety 11/07/2009 documented as of this encounter (statuses as of 07/26/2019) Resolved Problems Problem Noted Date Resolved Date Abdominal pain 05/21/2018 02/09/2019 Acute cholecystitis 05/20/2018 07/16/2019 Right upper quadrant abdominal pain 05/20/2018 02/0 02/2019 Bandemia 05/20/2018 07/16/2019 Chest pain, atypical 07/16/2016 10/11/2016 documented as of this encounter (statuses as of 07/26/2019) Immunizations Name Administration Dates Next Due Influenza [...] Office Visit Urology Teo Perkins MD [address] [place] [address] [phone] Health Maintenance Due Date Last Done Comments [...] on patient's age to complete this to [facility] documented as of this encounter Results Not on filedocumented in this encounter Insurance Payer Benefit Plan / Subscriber ID Effective Dates Phone Addre ss Type Group MEDICARE MEDICARE PART xxxxxxxxxxx 2019-Mo [phone] [address] Medicare A & B t 2 [id number] [place] [id number] documented as of this encounter
--- OUTSIDE RECORDS SUMMARY | 2020-03-08 12:24 | XMS REPORT | Summary of Care ---
:1955 Author Organization [facility] Address [address] [place] [address] Care Team Providers Name Role Phone MD Gianfranco Primary Care Provider Reason for Visit Reason Comments Refill Request Encounter Details Date Type Department Care Team Description 02/17/2020 Refill [facility] Family Medicine, Shane Cui MD Refill Request [facility] on [address] [facility] Primary Care [address] [address] [place], [place] [address] [phone] Allergies Active Allergy Reactions Severity Noted Date Comments Codeine Nausea and/or Vomiting 04/13/2016 Penicillins Nausea and/or Vomiting 07/16/2016 documented as of this encounter (statuses as of 02/17/2020) Medications Medication Sig Dispensed Refills Start Date [...] 10/01/2019 Active tabletIndications: mouth daily. Essential hypertension gabapentin 300 mg Take 1 capsule 21 [...] major depressive disorder, unspecified whether recurrent, Anxiety PRAVASTATIN 40 mg TAKE ONE TABLET 90 tablet 0 01/15/2020 Active tabletIndications: BY MOUTH DAILY Mixed hyperlipidemia ON AN EMPTY STOMACH documented as of this encounter (statuses as of 02/17/2020) Active Problems Problem Noted Date Bladder stone 10/16/2019 Overview: Added automatically from request for kayleigh blackwood [id number] Low TSH level 07/18/2019 Thinning hair 07/18/2019 Generalized anxiety disorder 09/12/2018 Chronic cholecystitis due to gallbladder calculus with obstruction 06/06/2018 Overview: Added automatically from request for kayleigh merced [id number] Gall stones 05/19/2018 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 Overview: Left axis deviation on EKG -- 2015 Mixed hyperlipidemia 09/27/2015 Overview: 10-year ASCVD risk 6.7% on pravastatin 4 0mg -- 06/2018 Obesity (BMI 30.0-34.9) 09/27/2015 Essential hypertension 04/10/2014 Depression with anxiety 11/07/2009 documented as of this encounter (statuses as of 02/17/2020) Resolved Problems Problem Noted Date Resolved Date Abdominal pain 05/21/2018 02/09/2019 Acute cholecystitis 05/20/2018 07/16/2019 Right upper quadrant abdominal pain 05/20/2018 0202/2019 Bandemia 05/20/2018 07/16/2019 Chest pain, atypical 07/16/2016 10/11/2016 documented as of this encounter (statuses as of 02/17/2020) Immunizations Name Administration Dates Next Due Influenza [...] filedocumented in this encounter Visit Diagnoses Diagnosis Anxiety Anxiety state, unspecified Current moderate episode of major depres sive disorder, unspecified whether recurrent documented in this encounter Insurance Payer Benefit Plan / Subscriber ID Effective Phone Address T e Group Dates [employer]ARP MEDICARE [id number] 2019-Valeria esparza Adv HEALTHCARE - COMPLETE nt [facility] [place]NA[place]ED MEDICARE documented as of this encounter
--- OUTSIDE RECORDS SUMMARY | 2020-03-08 12:24 | XMS REPORT | Summary of Care ---
:1955 Author Organization [facility] Address [address] [place] [address] Care Team Providers Name Role Phone MD Gianfranco Primary Care Provider Reason for Visit Reason Comments Follow-up s/p bladder stone procedure (Routine) Status Reason Specialty Diagnoses / Procedures Referred By Asha kate To Contact Contact Authorized Urology Diagnoses Other urinary incontinence Shane Medel, Procedures CONSULT/REFERRAL UROLOGY [address] [place] [address] [address] [place] [address] Encounter Details Date Type Department Care Team Description 11/29/2019 Office Visit [facility] Urology- Teo Perkins Uredanielle erocele (Primary Dx); Jhony Carbone MD Bladder stone [facility] [address] [place] [address] 5th Floor [address] [place], [place] [phone] [address] Allergies Active Allergy Reactions Severity Noted [...] Added automatically from request for kayleigh merced [id number] Low TSH level 07/18/2019 Thinning hair 07/18/2019 Generalized anxiety disorder 09/12/2018 Chronic cholecystitis due to gallbladder calculus with obstruction 06/06/2018 Overview: Added automatically from request for kayleigh merced [id number] Gall stones 05/19/2018 Left anterior fascicular hemiblock [...] Comments Blood Pressure 118/81 11/29/2019 10:07 AM PIGMENT MIXER Pulse 57 11/29/2019 10:07 AM PIGMENT MIXER Temperature 36.7 C (98 F) 11/29/2019 10:07 AM PIGMENT MIXER Respiratory Rate 16 11/29/2019 10:07 AM PIGMENT MIXER Oxygen Saturation - - Inhaled Oxygen Concentration - - Weight 96 kg (211 lb 11.2 oz) 11/29/2019 10:07 AM PIGMENT MIXER Height 177.8 cm (5' 10") 11/29/2019 10:07 AM PIGMENT MIXER Body Mass Index 30.38 11/29/2019 10:07 AM PIGMENT MIXER documented in this encounter Progress Notes Teo [...] file Gets together: Not on file Attends advent service: Not on file Active member of [...] ablation. Pt to f/u prn worsening sx's. ENT MIXER documented in this encounter Plan of Treatment [...] T e Group Dates [employer] MEDICARE [id number] 2019-Valeria esparza Adv HEALTHCARE - COMPLETE nt [place] MANAGED MEDICARE documented as of this encounter
--- OUTSIDE RECORDS SUMMARY | 2020-03-08 12:24 | XMS REPORT | Summary of Care ---
:1955 Author Organization [facility] Address [address] [place] [id number] Care Team Providers Name Role Phone MD Gianfranco Primary Care Provider Reason for Visit Reason Comments Refill Request Encounter Details Date Type Department Care Team Description 01/14/2020 Refill [facility] Family Medicine, Shane Cui MD Refill Request [facility] on [address] [facility] Primary Care [address] [address] [address] [place], [place] [phone] Allergies Active Allergy Reactions Severity Noted Date Comments Codeine Nausea and/or Vomiting 04/13/2016 Penicillins Nausea and/or Vomiting 07/16/2016 documented as of this encounter (statuses as of 01/15/2020) Medications Medication Sig Dispensed Refills Start Date End Date Status BIOTIN ORAL Take by 0 Active mouth. aspirin 81 mg Take 1 Tab by 60 Tab 2 10/21/2015 A ctive chewable mouth daily. tabletIndications: Essential hypertension VITAMIN B COMPLEX Take 1 0 Ac tive NO.12-NIACIN ORAL capsule by mouth daily. SERTraline 50 mg Take 1 tablet 90 tablet 3 02/23/2019 Active tabletIndications: by mouth Anxiety, Current daily. moderate episode of major depressive disorder, unspecified whether recurrent propranolol 80 mg Take 1 tablet 180 tablet 3 07/11/2019 Active tabletIndications: by mouth 2 Essential (two) times hypertension, daily. Generalized anxiety disorder lisinopril 20 mg Take 1 tablet 90 tablet 2 10/01/2019 Active tabletIndications: by mouth Essential daily. hypertension gabapentin 300 mg Take 1 21 capsule 0 10/19/2019 Active capsuleIndications: capsule by Bladder stone mouth 3 (three) times daily. ketorolac 10 mg Take 1 tablet 20 tablet 0 10/19/2019 Active tabletIndications: by mouth Bladder stone every 6 (six) hours as needed for Pain (scale 7-10). ergocalciferol, Take by 0 Acti ve vitamin D2, (VITAMIN mouth. D ORAL) cyanocobalamin, Take by 0 Acti ve vitamin B-12, mouth. (VITAMIN B12 ORAL) SERTRALINE 25 mg TAKE ONE 90 tablet 2 12/17/2019 Ac tive tabletIndications: TABLET BY Current mild episode MOUTH DAILY of major depressive disorder, unspecified whether recurrent, Anxiety PRAVASTATIN 40 mg TAKE ONE 90 tablet 0 01/15/2020 A ctive tabletIndications: TABLET BY Mixed hyperlipidemia MOUTH DAILY ON AN EMPTY STOMACH PRAVASTATIN 40 mg TAKE ONE 90 tablet 0 10/19/2019 D iscontinued tabletIndications: TABLET BY 0 Mixed hyperlipidemia MOUTH DAILY ON AN EMPTY STOMACH documented as of this encounter (statuses as of 01/15/2020) Active Problems Problem Noted Date Bladder stone 10/16/2019 Overview: Added automatically from request for kayleigh merced [id number] Low TSH level 07/18/2019 Thinning hair 07/18/2019 Generalized anxiety disorder 09/12/2018 Chronic cholecystitis due to gallbladder calculus with obstruction 06/06/2018 Overview: Added automatically from request for kayleigh merced [id number] Gall stones 05/19/2018 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 Overview: Left axis deviation on EKG -- 2015 Mixed hyperlipidemia 09/27/2015 Overview: 10-year ASCVD risk 6.7% on pravastatin 4 0mg -- 06/2018 Obesity (BMI 30.0-34.9) 09/27/2015 Essential hypertension 04/10/2014 Depression with anxiety 11/07/2009 documented as of this encounter (statuses as of 01/15/2020) Resolved Problems Problem Noted Date Resolved Date Abdominal pain 05/21/2018 02/09/2019 Acute cholecystitis 05/20/2018 07/16/2019 Right upper quadrant abdominal pain 05/20/2018 02/0 02/2019 Bandemia 05/20/2018 07/16/2019 Chest pain, atypical 07/16/2016 10/11/2016 documented as of this encounter (statuses as of 01/15/2020) Immunizations Name Administration Dates Next Due Influenza [...] filedocumented in this encounter Visit Diagnoses Diagnosis Mixed hyperlipidemia documented in this encounter Insurance Payer Benefit Plan / Subscriber ID Effective Phone Address T ype Group Dates [employer] MEDICARE [id number] 2019-Valeria esparza Adv HEALTHCARE - COMPLETE nt [facility] MANAGED MEDICARE documented as of this encounter
--- NOTE | 2020-03-08 12:36 | ER ---
Nurse's Notes [facility] Name: Esther Lira Age: 64 yrs Sex: Female : 1955 Arrival Date: 03/08/2020 Time: 12:21 Bed 16 Private MD: Diagnosis: Cellulitis of left lower limb Presentation: 03/08 12:28 Chief complaint: Patient states: I hit my leg with an ice-chest lid a week ago. It has ca1 blistered, turned black and red on the surrounding area. Coronavirus screen: Proceed with normal triage. Patient denies a cough. Patient denies shortness of breath or difficulty breathing. Patient denies measured and/or subjective temperature greater than 100.4F prior to today's visit. Patient denies travel on a cruise ship or to a country the [facility] currently lists as an affected area. Patient denies contact with known and/or suspected case of COVID-19. Ebola Screen: Patient negative for fever greater than or equal to 101.5 degrees Fahrenheit, and additional compatible Ebola Virus Disease symptoms Patient denies exposure to infectious person. Patient denies travel to an Ebola-affected area in the 21 days before illness onset. No symptoms or risks identified at this time. Initial Sepsis Screen: Does the patient meet any 2 criteria? No. Patient's initial sepsis screen is negative. Does the patient have a suspected source of infection? No. Patient's initial sepsis screen is negative. Risk Assessment: Do you want to hurt yourself or someone else? Patient reports no desire to harm self or others. Onset of symptoms was March 08, 2020. 12:28 Method Of Arrival: Ambulatory ca1 12:28 Acuity: CLAUDETTE 5 ca1 Triage Assessment: 12:32 General: Appears in no apparent distress. comfortable, Behavior is calm, cooperative, ca1 appropriate for age. Pain: Denies pain. Neuro: Level of Consciousness is awake, alert, obeys commands, Oriented to person, place, time, situation, Appropriate for age. Derm: Skin is intact, is healthy with good turgor, Skin is pink, warm \T\ dry. Derm: Wound noted left leg Wound is blister dark in color, and redness on surrounding area. Musculoskeletal: Circulation, motion, and sensation intact. Capillary refill. Historical: - Allergies: 12:32 Codeine; ca1 12:32 PENICILLINS; ca1 - Home Meds: 12:32 lisinopril Oral [Active]; pravastatin Oral [Active]; Propranolol Oral [Active]; aspirin ca1 81 mg Oral chew 1 tab once daily [Active]; - PMHx: 12:32 High Cholesterol; Hypertension; ca1 - PSHx: 12:32 Cholecystectomy; neck sx; ca1 - Immunization history:: Adult Immunizations up to date, Last tetanus immunization: up to date Pneumococcal vaccine is up to date, Flu vaccine is up to date. - Social history:: Smoking status: Patient denies any tobacco usage or history of. Screenin:34 Abuse screen: Denies threats or abuse. Denies injuries from another. Nutritional ca1 screening: No deficits noted. Tuberculosis screening: No symptoms or risk factors identified. Fall Risk None identified. Assessment: 12:34 Reassessment: SEE TRIAGE NOTES. ca1 12:53 Reassessment: Patient appears in no apparent distress at this time. Patient is alert, ca1 oriented x 3, equal unlabored respirations, skin warm/dry/pink. Drained blister with G18 needle, cleaned with betadine, and dressed with non-adherent dressing and emanuel wrap. Pt tolerated well. Vital Signs: 12:28 BP 131 / 86; Pulse 60; Resp 18 S; Temp 97.8(TE); Pulse Ox 97% on R/A; Weight 90.26 kg ca1 (R); Height 5 ft. 10 in. (177.80 cm) (R); Pain 0/10; 12:28 Body Mass Index 28.55 (90.26 kg, 177.80 cm) ca1 ED Course: 12:21 Patient arrived in ED. ag5 12:22 Vianey Sanchez, RN is Primary Nurse. ca1 12:26 Mina Boston PA is PHCP. cp 12:26 Kalin Walsh MD is Attending Physician. cp 12:30 Triage completed. ca1 12:32 Arm band placed on right wrist. ca1 12:34 Patient has correct armband on for positive identification. Bed in low position. Call ca1 light in reach. Side rails up X 1. Pulse ox on. NIBP on. 12:35 No provider procedures requiring assistance completed. Patient did not have IV access ca1 during this emergency room visit. Administered Medications: No medications were administered Outcome: 12:35 Discharge ordered by . cp 12:54 Discharged to home ambulatory. ca1 12:54 Condition: stable 12:54 Discharge instructions given to patient, Instructed on discharge instructions, follow up and referral plans. medication usage, wound care, Demonstrated understanding of instructions, follow-up care, medications, wound care, Prescriptions given X 1. 12:57 Patient left the ED. ca1 Signatures: Mina Boston PA PA cp Acob, Cheryl, RN RN ca1 Eulalio Lopez ag5 Corrections: (The following items were deleted from the chart) 12:57 12:32 Derm: Bruising that is dark purple, on lateral aspect of right calf ca1 ca1
--- NOTE | 2020-03-08 12:36 | EDPHYS ---
Physician Documentation [facility] Name: Esther Lira Age: 64 yrs Sex: Female : 1955 Arrival Date: 03/08/2020 Time: 12:21 Bed 16 Private MD: ED Physician Kalin Walsh HPI: 03/08 12:30 This 64 yrs old Female presents to ER via Ambulatory with complaints of cp Blister On Leg. 12:30 The patient presents with an injury. cp 12:30 The complaints affect the left hui. Context: resulted from a direct blow, lid of ice cp chest, the patient can fully bear weight, the patient is able to ambulate, without difficulty. Onset: The symptoms/episode began/occurred 1 week(s) ago. Associated signs and symptoms: Pertinent positives: warmth, erythema, Pertinent negatives fever. Historical: - Allergies: 12:32 Codeine; ca1 12:32 PENICILLINS; ca1 - Home Meds: 12:32 lisinopril Oral [Active]; pravastatin Oral [Active]; Propranolol Oral [Active]; aspirin ca1 81 mg Oral chew 1 tab once daily [Active]; - PMHx: 12:32 High Cholesterol; Hypertension; ca1 - PSHx: 12:32 Cholecystectomy; neck sx; ca1 - Immunization history:: Adult Immunizations up to date, Last tetanus immunization: up to date Pneumococcal vaccine is up to date, Flu vaccine is up to date. - Social history:: Smoking status: Patient denies any tobacco usage or history of. ROS: 12:32 Constitutional: Negative for body aches, chills, fever. cp 12:32 Skin: Positive for erythema, of the left hui. cp 12:32 All other systems are negative. Exam: 12:33 Constitutional: The patient appears in no acute distress, alert, awake, non-toxic, well cp developed, well nourished. 12:33 Skin: cellulitis, that is mild, well demarcated, on the left hui, injury, cp contusion(s), that are superficial, of the left hui. Vital Signs: 12:28 BP 131 / 86; Pulse 60; Resp 18 S; Temp 97.8(TE); Pulse Ox 97% on R/A; Weight 90.26 kg ca1 (R); Height 5 ft. 10 in. (177.80 cm) (R); Pain 0/10; 12:28 Body Mass Index 28.55 (90.26 kg, 177.80 cm) ca1 MDM: 12:30 Patient medically screened. cp 12:35 Differential diagnosis: closed fracture, contusion, cellulitis, abscess. cp 12:35 Data reviewed: vital signs, nurses notes, and as a result, I will discharge patient. cp Counseling: I had a detailed discussion with the patient and/or guardian regarding: the historical points, exam findings, and any diagnostic results supporting the discharge/admit diagnosis, the need for outpatient follow up, a family practitioner, to return to the emergency department if symptoms worsen or persist or if there are any questions or concerns that arise at home. 03/08 12:33 Order name: Wound dressing: drain wound and dress; Complete Time: 12:53 cp Administered Medications: No medications were administered Disposition: 13:00 Chart complete. cp 13:07 Co-signature as Attending Physician, Kalin Walsh MD. rn Disposition: 03/08/20 12:35 Discharged to Home. Impression: Cellulitis of left lower limb. - Condition is Stable. - Discharge Instructions: Cellulitis, Adult. - Prescriptions for Bactrim DS 800- 160 mg Oral Tablet - take 1 tablet by ORAL route every 12 hours for 10 days; 20 tablet. - Medication Reconciliation Form, Thank You Letter, Antibiotic Education, Prescription Opioid Use form. - Follow up: Private Physician; When: 1 - 2 days; Reason: Worsening of condition. - Problem is new. - Symptoms have improved. Signatures: Kalin Walsh MD MD rn Page, Corey, PA PA cp Acob, Cheryl, RN RN ca1 Corrections: (The following items were deleted from the chart) 12:33 12:33 This 64 yrs old Female presents to ER via Ambulatory with complaints of cp Blister On Leg. cp 12:57 12:35 03/08/2020 12:35 Discharged to Home. Impression: Cellulitis of left lower limb. ca1 Condition is Stable. Forms are Medication Reconciliation Form, Thank You Letter, Antibiotic Education, Prescription Opioid Use. Follow up: Private Physician; When: 1 - 2 days; Reason: Worsening of condition. Problem is new. Symptoms have improved. cp
[2020-03-08 13:04] VITALS: BP 131/86; TEMP 97.8; O2SAT 97
== END 2020-03-08 12:57 | disposition home or self-care (01) ==
LOC: ER 12:18
DX: L03.116 Cellulitis of left lower limb (principal); W22.8XXA Striking against or struck by other objects, initial encounter; Y93.9 Activity, unspecified; Y92.9 Unspecified place or not applicable; Z79.82 Long term (current) use of aspirin; Z88.0 Allergy status to penicillin; Z88.5 Allergy status to narcotic agent; I10 Essential (primary) hypertension; E78.00 Pure hypercholesterolemia, unspecified
CPT/HCPCS: 99283